=== PATIENT | female | born 2000 | race Caucasian/White ===

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

== ENCOUNTER 2018-07-31 07:13 | Emergency (ER) | payer MEDICAID ==
--- NOTE | 2018-07-31 08:44 | XR ---
EXAMINATION TYPE: XR chest 2V DATE OF EXAM: 07/31/2018 COMPARISON: 10/19/2005 HISTORY: Chest pain TECHNIQUE: Frontal and lateral views of the chest are obtained. FINDINGS: There is no focal air space opacity. No evidence for pneumothorax. No pleural effusion. The cardiac silhouette size is within normal limits. The osseous structures are grossly intact. IMPRESSION: 1. No acute cardiopulmonary process.
--- NOTE | 2018-07-31 09:06 | ED ---
General Adult HPI - General Chief complaint: Upper Respiratory Infection Stated complaint: cough/congestion Time Seen by Provider: 07/31/18 08:05 Source: patient, RN notes reviewed Mode of arrival: ambulatory Limitations: no limitations - History of Present Illness Initial comments: 18-year-old female presents to the emergency department for a chief complaint of cough congestion 3 weeks. Patient states she initially had a productive cough with green phlegm however it has since become a dry cough. Patient denies any significant shortness of breath or chest pain. Denies history of asthma or reactive airway disease. Denies fevers or chills. Patient also complaining of left-sided facial pain along the maxillary sinus, stating that this is radiating down into her teeth. Patient states her left side of her face feels a little bit swollen as well. Denies any sore throat. Denies any headaches or visual changes. Denies any pain in the left eye.Patient has no other complaints at this time including shortness of breath, chest pain, abdominal pain, nausea or vomiting, headache, or visual changes. - Related Data Home Medications Medication Instructions Recorded Confirmed FLUoxetine HCL [PROzac] 60 mg PO DAILY 04/08/14 07/31/18 Medroxyprogesterone Acetate 150 mg IM Q90D 07/31/18 07/31/18 [Depo-Provera] busPIRone HCL 15 mg PO DAILY 07/31/18 07/31/18 Previous Rx's Medication Instructions Recorded Benzonatate [Tessalon Perles] 200 mg PO Q8H PRN #15 capsule 07/31/18 Clindamycin HCl 300 mg PO Q6H 7 Days cap 07/31/18 Loratadine [Claritin] 10 mg PO DAILY #20 tab 07/31/18 Allergies Allergy/AdvReac Type Severity Reaction Status Date / Time Penicillins Allergy Rash/Hives Verified 07/31/18 07:43 Review of Systems ROS Statement: Those systems with pertinent positive or pertinent negative responses have been documented in the HPI. ROS Other: All systems not noted in ROS Statement are negative. Past Medical History Past Medical History: No Reported History History of Any Multi-Drug Resistant Organisms: None Reported Past Surgical History: No Surgical Hx Reported Past Psychological History: Depression Smoking Status: Never smoker Past Alcohol Use History: None Reported Past Drug Use History: Marijuana General Exam Limitations: no limitations General appearance: alert, in no apparent distress Head exam: Present: atraumatic, normocephalic, normal inspection Eye exam: Present: normal appearance, PERRL, EOMI. Absent: scleral icterus, conjunctival injection, periorbital swelling ENT exam: Present: normal exam, normal oropharynx (Nonerythematous, uvula midline, no tonsillar exudates noted bilaterally), mucous membranes moist, TM's normal bilaterally (Nonerythematous, nonbulging), normal external ear exam, other (Patient does have tenderness noted over the left maxillary sinus with minimal erythema. No significant edema noted.) Neck exam: Present: normal inspection, full ROM. Absent: tenderness, meningismus, lymphadenopathy Respiratory exam: Present: normal lung sounds bilaterally. Absent: respiratory distress, wheezes, rales, rhonchi, stridor Cardiovascular Exam: Present: regular rate, normal rhythm, normal heart sounds. Absent: systolic murmur, diastolic murmur, rubs, gallop, clicks Neurological exam: Present: alert, oriented X3, CN II-XII intact Psychiatric exam: Present: normal affect, normal mood Skin exam: Present: warm, dry, intact, normal color. Absent: rash Course Vital Signs 07/31/18 07:23 Temperature 97.9 F Pulse Rate 82 Respiratory 16 Rate Blood Pressure 123/67 O2 Sat by Pulse 98 Oximetry Medical Decision Making - Medical Decision Making 18-year-old female presents to the emergency room for cough and congestion 3 weeks. Patient states cough was initially productive but is now a dry cough. States she has had congestion but the past 2 days the left side of her face feels somewhat swollen and she has tenderness over the next her sinus. On exam lungs are clear to auscultation bilaterally. No wheezing. No history of asthma or reactive airway disease. Patient does have minimal erythema noted over the left maxillary sinusitis with minimal tenderness. No significant edema present of the left neck/sinusitis. Chest x-ray negative for any consolidations. Discussed case with Dr. Montano who also examined patient. At this time as patient is penicillin ALLERGIC we would like to start her on clindamycin for sinusitis as this may have turned into a bacterial infection as a has been ongoing for 3 weeks. However did discuss strict return parameters the patient including severe headache, high fevers, or pain in the eye or visual changes. Discussed following up with primary care in 1-2 days. Disposition Clinical Impression: Sinusitis, Cough Disposition: HOME SELF-CARE Condition: Good Instructions (If sedation given, give patient instructions): Sinusitis (ED), A cute Cough (ED) Additional Instructions: Please take clindamycin as directed for signs of infection. Take Claritin as well for allergic component. Try tessalon perles for cough. Follow up with primary care in 1-2 days. Return here if you have any worsening symptoms such as fevers, headaches, eye pain or visual changes. Prescriptions: Loratadine [Claritin] 10 mg PO DAILY #20 tab Clindamycin HCl 300 mg PO Q6H 7 Days cap Benzonatate [Tessalon Perles] 200 mg PO Q8H PRN #15 capsule PRN Reason: Cough Is patient prescribed a controlled substance at d/c from ED?: No Referrals: Cora Wesley MD [Primary Care Provider] - 1-2 days Time of Disposition: 09:03
[2018-07-31 09:55] VITALS: BP 135/71; PULSE 90; RESP 18; TEMP 97.4
== END 2018-07-31 09:55 | disposition home or self-care (01) ==
LOC: EC 07:13
DX: J32.0 Chronic maxillary sinusitis (principal); F32.9 Major depressive disorder, single episode, unspecified; Z79.899 Other long term (current) drug therapy; Z88.0 Allergy status to penicillin
CPT/HCPCS: 71046; 99283

== ENCOUNTER 2019-01-10 05:26 | Emergency (ER) | payer MEDICAID ==
[2019-01-10] MEDS ORDERED: SODIUM CHLORIDE 0.9% 1,000 ML IV STA (05:50)
[2019-01-10] MEDS ORDERED: MAG HYDROX/AL HYDROX/SIMETH 30 ML, HYOSCYAMINE ELIXIR 10 ML, LIDOCAINE VISCOUS 2% 10 ML PO STA ×3 (06:08)
[2019-01-10 06:13] LABS: Appearance,Urine Clear (Clear); Bilirubin,Urine Negative (Negative); Blood,Urine Negative (Negative); Color,Urine Yellow; Glucose,Urine (UA) Negative (Negative); Ketones,Urine Negative (Negative); Leukocyte Esterase,Urine Negative (Negative); Nitrite,Urine Negative (Negative); PH, Urine 6.5 (5.0-8.0); Protein,Urine Negative (Negative); Specific Gravity,Urine 1.022 (1.001-1.035)
[2019-01-10 06:14] LABS: Basophils # (A) 0.1 k/uL (0-0.2); Basophils % (A) 1 %; Eosinophils # (A) 0.1 k/uL (0-0.7); Eosinophils % (A) 1 %; HCT 39.3 % (34.0-46.0); HGB 13.1 gm/dL (11.4-16.0); Lymphocytes # (A) 1.6 k/uL (1.0-4.8); Lymphocytes % (A) 26 %; MCH 29.3 pg (25.0-35.0); MCHC 33.4 g/dL (31.0-37.0); MCV 87.7 fL (80.0-100.0); Mean Platelet Volume 6.1; Monocytes # (A) 0.3 k/uL (0-1.0); Monocytes % (A) 5 %; Neutrophils # (A) 4.1 k/uL (1.3-7.7); Neutrophils % (A) 65 %; Platelet Count 392 k/uL (150-450); RBC 4.49 m/uL (3.80-5.40); RDW 12.7 % (11.5-15.5); WBC 6.2 k/uL (4.0-11.0)
[2019-01-10 06:23] LABS: ALT 23 U/L (9-52); AST 19 U/L (14-36); African American GFR (CKD) >90 (>60 ml/min/1.73 sqM); Albumin 3.8 g/dL (3.5-5.0); Alkaline Phosphatase 113 U/L (38-126); Amylase <30 U/L (30-110); Anion Gap 10 mmol/L; Blood Urea Nitrogen 10 mg/dL (7-17); Carbon Dioxide 24 mmol/L (22-30); Chloride 107 mmol/L (98-107); Glucose 118 mg/dL (74-99); Potassium 4.1 mmol/L (3.5-5.1); Sodium 141 mmol/L (137-145); Total Bilirubin 0.3 mg/dL (0.2-1.3)
--- NOTE | 2019-01-10 06:49 | ED ---
Abdominal Pain HPI - General Chief Complaint: Abdominal Pain Stated Complaint: CHEST PAIN Time Seen by Provider: 01/10/19 05:49 Source: patient, RN notes reviewed Mode of arrival: ambulatory Limitations: no limitations - History of Present Illness Initial Comments: 18-year-old female presents emergency Department with chief complaint of epigastric pain. Patient states he woke up around 3 AM. Patient denies any current nausea vomiting diarrhea constipation or dysuria no hematuria. Denies any chance . Patient states that pain Radiates up into her chest and back. Patient states it's a burning sensation. She states his symptoms are worse when she lays down. She states that she's had ulcers in the past and states that she continuously on omeprazole states that she does not take it currently. His any fevers, chills, shortness breath. - Related Data Home Medications Medication Instructions Recorded Confirmed FLUoxetine HCL [PROzac] 60 mg PO DAILY 04/08/14 07/31/18 Medroxyprogesterone Acetate 150 mg IM Q90D 07/31/18 07/31/18 [Depo-Provera] busPIRone HCL 15 mg PO DAILY 07/31/18 07/31/18 Previous Rx's Medication Instructions Recorded Benzonatate [Tessalon Perles] 200 mg PO Q8H PRN #15 capsule 07/31/18 Clindamycin HCl 300 mg PO Q6H 7 Days cap 07/31/18 Loratadine [Claritin] 10 mg PO DAILY #20 tab 07/31/18 Omeprazole [PriLOSEC] 20 mg PO AC-BRKFST #14 cap 01/10/19 Allergies Allergy/AdvReac Type Severity Reaction Status Date / Time Penicillins Allergy Rash/Hives Verified 01/10/19 05:32 Review of Systems ROS Statement: Those systems with pertinent positive or pertinent negative responses have been documented in the HPI. ROS Other: All systems not noted in ROS Statement are negative. Past Medical History Past Medical History: No Reported History History of Any Multi-Drug Resistant Organisms: None Reported Past Surgical History: No Surgical Hx Reported Past Psychological History: Depression Smoking Status: Never smoker Past Alcohol Use History: None Reported Past Drug Use History: Marijuana General Exam Limitations: no limitations General appearance: alert, in no apparent distress Head exam: Present: atraumatic, normocephalic, normal inspection Eye exam: Present: normal appearance, PERRL, EOMI. Absent: scleral icterus, conjunctival injection, periorbital swelling ENT exam: Present: normal exam, normal oropharynx, mucous membranes moist Neck exam: Present: normal inspection. Absent: tenderness, meningismus, lymphadenopathy Respiratory exam: Present: normal lung sounds bilaterally. Absent: respiratory distress, wheezes, rales, rhonchi, stridor Cardiovascular Exam: Present: regular rate, normal rhythm, normal heart sounds. Absent: systolic murmur, diastolic murmur, rubs, gallop, clicks GI/Abdominal exam: Present: soft, tenderness (Epigastric tenderness), normal bowel sounds. Absent: distended, guarding, rebound, rigid Back exam: Absent: CVA tenderness (R), CVA tenderness (L) Neurological exam: Present: alert Skin exam: Present: warm, dry, intact, normal color. Absent: rash Course Vital Signs 01/10/19 05:30 Temperature 98.6 F Pulse Rate 88 Respiratory 20 Rate Blood Pressure 115/77 O2 Sat by Pulse 96 Oximetry - Reevaluation(s) Reevaluation #1: 01/10/19 06:53 Patient reevaluated and updated and results. Patient states that she feels improved after GI cocktail. Medical Decision Making - Medical Decision Making 18-year-old female presented for epigastric discomfort. Patient labs reveal mild elevated lipase otherwise unremarkable. Patient did have relief from GI cocktail symptoms are consistent with GERD. Patient we started on omeprazole. We discussed liquid diet today and progress as tolerated. - Lab Data Result diagrams: 01/10/19 06:00 01/10/19 06:00 Lab Results 01/10/19 01/10/19 01/10/19 Range/Units 06:00 06:00 06:00 WBC 6.2 (4.0-11.0) k/uL RBC 4.49 (3.80-5.40) m/uL Hgb 13.1 (11.4-16.0) gm/dL Hct 39.3 (34.0-46.0) % MCV 87.7 (80.0-100.0) fL MCH 29.3 (25.0-35.0) pg MCHC 33.4 (31.0-37.0) g/dL RDW 12.7 (11.5-15.5) % Plt Count 392 (150-450) k/uL Neutrophils % 65 % Lymphocytes % 26 % Monocytes % 5 % Eosinophils % 1 % Basophils % 1 % Neutrophils # 4.1 (1.3-7.7) k/uL Lymphocytes # 1.6 (1.0-4.8) k/uL Monocytes # 0.3 (0-1.0) k/uL Eosinophils # 0.1 (0-0.7) k/uL Basophils # 0.1 (0-0.2) k/uL Sodium 141 (137-145) mmol/L Potassium 4.1 (3.5-5.1) mmol/L Chloride 107 (98-107) mmol/L Carbon Dioxide 24 (22-30) mmol/L Anion Gap 10 mmol/L BUN 10 (7-17) mg/dL Creatinine 0.55 (0.52-1.04) mg/dL Est GFR (CKD-EPI)AfAm >90 (>60 ml/min/1.73 sqM) Est GFR (CKD-EPI)NonAf >90 (>60 ml/min/1.73 sqM) Glucose 118 H (74-99) mg/dL Calcium 9.0 (8.4-10.2) mg/dL Total Bilirubin 0.3 (0.2-1.3) mg/dL AST 19 (14-36) U/L ALT 23 (9-52) U/L Alkaline Phosphatase 113 (38-126) U/L Total Protein 7.0 (6.3-8.2) g/dL Albumin 3.8 (3.5-5.0) g/dL Amylase <30 L (30-110) U/L Lipase 410 H (23-300) U/L Urine Color Yellow Urine Appearance Clear (Clear) Urine pH 6.5 (5.0-8.0) Ur Specific [place] 1.022 (1.001-1.035) Urine Protein Negative (Negative) Urine Glucose (UA) Negative (Negative) Urine Ketones Negative (Negative) Urine Blood Negative (Negative) Urine Nitrite Negative (Negative) Urine Bilirubin Negative (Negative) Urine Urobilinogen 2.0 (<2.0) mg/dL Ur Leukocyte Esterase Negative (Negative) Urine HCG, Qual (Not Detectd) 01/10/19 Range/Units 06:00 WBC (4.0-11.0) k/uL RBC (3.80-5.40) m/uL Hgb (11.4-16.0) gm/dL Hct (34.0-46.0) % MCV (80.0-100.0) fL MCH (25.0-35.0) pg MCHC (31.0-37.0) g/dL RDW (11.5-15.5) % Plt Count (150-450) k/uL Neutrophils % % Lymphocytes % % Monocytes % % Eosinophils % % Basophils % % Neutrophils # (1.3-7.7) k/uL Lymphocytes # (1.0-4.8) k/uL Monocytes # (0-1.0) k/uL Eosinophils # (0-0.7) k/uL Basophils # (0-0.2) k/uL Sodium (137-145) mmol/L Potassium (3.5-5.1) mmol/L Chloride (98-107) mmol/L Carbon Dioxide (22-30) mmol/L Anion Gap mmol/L BUN (7-17) mg/dL Creatinine (0.52-1.04) mg/dL Est GFR (CKD-EPI)AfAm (>60 ml/min/1.73 sqM) Est GFR (CKD-EPI)NonAf (>60 ml/min/1.73 sqM) Glucose (74-99) mg/dL Calcium (8.4-10.2) mg/dL Total Bilirubin (0.2-1.3) mg/dL AST (14-36) U/L ALT (9-52) U/L Alkaline Phosphatase (38-126) U/L Total Protein (6.3-8.2) g/dL Albumin (3.5-5.0) g/dL Amylase (30-110) U/L Lipase (23-300) U/L Urine Color Urine Appearance (Clear) Urine pH (5.0-8.0) Ur Specific [place] (1.001-1.035) Urine Protein (Negative) Urine Glucose (UA) (Negative) Urine Ketones (Negative) Urine Blood (Negative) Urine Nitrite (Negative) Urine Bilirubin (Negative) Urine Urobilinogen (<2.0) mg/dL Ur Leukocyte Esterase (Negative) Urine HCG, Qual Not Detected (Not Detectd) Disposition Clinical Impression: Epigastric abdominal pain, Gastritis, GERD (gastroesophageal reflux disease) Disposition: HOME SELF-CARE Condition: Stable Instructions (If sedation given, give patient instructions): Gastroesophageal Reflux Disease (ED), Diet for Stomach Ulcers and Gastritis (ED) Additional Instructions: Please return to the Emergency Department if symptoms worsen or any other co ncerns. Prescriptions: Omeprazole [PriLOSEC] 20 mg PO AC-BRKFST #14 cap Is patient prescribed a controlled substance at d/c from ED?: No Referrals: None,Stated [Primary Care Provider] - 1-2 days Desmond Mendoza MD [STAFF PHYSICIAN] - 1-2 days Time of Disposition: 06:55
[2019-01-10] MEDS ORDERED: PANTOPRAZOLE 40 MG/10 ML VIAL IVP STA (06:55)
[2019-01-10] MEDS ORDERED: PANTOPRAZOLE 40 MG TABLET PO STA (07:06)
[2019-01-10 07:11] VITALS: BP 114/72; PULSE 80; RESP 18; TEMP 98
== END 2019-01-10 07:15 | disposition home or self-care (01) ==
LOC: EC 05:26
DX: K29.70 Gastritis, unspecified, without bleeding (principal); K21.9 Gastro-esophageal reflux disease without esophagitis; R74.8 Abnormal levels of other serum enzymes; F32.9 Major depressive disorder, single episode, unspecified; Z79.899 Other long term (current) drug therapy; Z88.0 Allergy status to penicillin
CPT/HCPCS: 36415; 80053; 81003; 81025; 82150; 83690; 85025; 96360; 99284

== ENCOUNTER 2019-09-26 09:19 | Emergency (ER) | payer MEDICAID ==
[2019-09-26 09:24] VITALS: TEMP 98.1
[2019-09-26] MEDS ORDERED: KETOROLAC 30 MG/ML 1 ML VIAL IVP STA (10:04)
[2019-09-26] MEDS ORDERED: ONDANSETRON 4 MG/2 ML VIAL IVP STA (10:28)
[2019-09-26 10:34] LABS: Basophils % (A) 0 %; Eosinophils # (A) 0.1 k/uL (0-0.7); Eosinophils % (A) 1 %; HCT 41.8 % (34.0-46.0); Lymphocytes # (A) 2.5 k/uL (1.0-4.8); Lymphocytes % (A) 32 %; MCH 29.8 pg (25.0-35.0); MCHC 33.6 g/dL (31.0-37.0); MCV 88.8 fL (80.0-100.0); Mean Platelet Volume 6.6; Monocytes # (A) 0.5 k/uL (0-1.0); Monocytes % (A) 6 %; Neutrophils # (A) 4.7 k/uL (1.3-7.7); Neutrophils % (A) 59 %; Platelet Count 376 k/uL (150-450); RDW 12.6 % (11.5-15.5); WBC 7.9 k/uL (3.8-10.6)
[2019-09-26 10:36] LABS: Appearance,Urine Cloudy (Clear); Bilirubin,Urine Negative (Negative); Blood,Urine Large (Negative); Color,Urine Yellow; Glucose,Urine (UA) Negative (Negative); Ketones,Urine Negative (Negative); Leukocyte Esterase,Urine Negative (Negative); Mucus,Urine Moderate /hpf; Nitrite,Urine Negative (Negative); Protein,Urine Trace (Negative); RBC,Urine 167 /hpf (0-5); Specific Gravity,Urine 1.025 (1.001-1.035); Squamous Epithelial Cell,Urine 11 /hpf (0-4); Urobilinogen,Urine <2.0 mg/dL (<2.0); WBC,Urine 2 /hpf (0-5)
[2019-09-26 10:42] LABS: ALT 18 U/L (4-34); AST 21 U/L (14-36); African American GFR (CKD) >90 (>60 ml/min/1.73 sqM); Albumin 4.2 g/dL (3.5-5.0); Alkaline Phosphatase 121 U/L (38-126); Amylase 39 U/L (30-110); Anion Gap 10 mmol/L; Blood Urea Nitrogen 10 mg/dL (7-17); Calcium 9.4 mg/dL (8.4-10.2); Carbon Dioxide 21 mmol/L (22-30); Chloride 107 mmol/L (98-107); Glucose 110 mg/dL (74-99); Non-African American GFR(CKD) >90 (>60 ml/min/1.73 sqM); Sodium 138 mmol/L (137-145); Total Bilirubin 0.3 mg/dL (0.2-1.3); Total Protein 7.1 g/dL (6.3-8.2)
--- NOTE | 2019-09-26 11:20 | ED ---
Abdominal Pain HPI - General Chief Complaint: Abdominal Pain Stated Complaint: low back/abd pain Time Seen by Provider: 09/26/19 09:26 Source: patient Mode of arrival: ambulatory Limitations: no limitations - History of Present Illness Initial Comments: 19-year-old feel with history of pancreatitis presents emergency department today for chief complaint of right side pain radiating towards the anterior abdomen. Patient states this has been ongoing since 8AM it woke her out of a sleep. Endorses nausea or vomiting. Patient denies a known history of kidney stones denies having dysuria urgency frequency or noting hematuria. Patient denies . Denies a vaginal bleeding or discharge. Denies fevers, chillss. Patient has no additional complaints denies any epigastric pain. Patient appears well on arrival. - Related Data Home Medications Medication Instructions Recorded Confirmed FLUoxetine HCL [PROzac] 60 mg PO DAILY 04/08/14 07/31/18 Medroxyprogesterone Acetate 150 mg IM Q90D 07/31/18 07/31/18 [Depo-Provera] busPIRone HCL 15 mg PO DAILY 07/31/18 07/31/18 Previous Rx's Medication Instructions Recorded Benzonatate [Tessalon Perles] 200 mg PO Q8H PRN #15 capsule 07/31/18 Clindamycin HCl 300 mg PO Q6H 7 Days cap 07/31/18 Loratadine [Claritin] 10 mg PO DAILY #20 tab 07/31/18 Omeprazole [PriLOSEC] 20 mg PO AC-BRKFST #14 cap 01/10/19 Ketorolac [Toradol] 10 mg PO Q8HR PRN 3 Days #9 tab 09/26/19 Ondansetron Odt [Zofran Odt] 4 mg PO Q8HR PRN 3 Days #9 tab 09/26/19 Allergies Allergy/AdvReac Type Severity Reaction Status Date / Time Penicillins Allergy Rash/Hives Verified 09/26/19 09:24 Review of Systems ROS Statement: Those systems with pertinent positive or pertinent negative responses have been documented in the HPI. ROS Other: All systems not noted in ROS Statement are negative. Past Medical History Past Medical History: No Reported History History of Any Multi-Drug Resistant Organisms: None Reported Past Surgical History: No Surgical Hx Reported Past Psychological History: Depression Smoking Status: Never smoker Past Alcohol Use History: None Reported Past Drug Use History: Marijuana General Exam - General Exam Comments Initial Comments: General: The patient is awake and alert, in no distress, and does not appear acutely ill. Eye: Pupils are equal, round and reactive to light, extra-ocular movements are intact. No nystagmus. There is normal conjunctiva bilaterally. No signs of icterus. Ears, nose, mouth and throat: There are moist mucous membranes and no oral lesions. Neck: The neck is supple, there is no tenderness or JVD. Cardiovascular: There is a regular rate and rhythm. No murmur, rub or gallop is appreciated. Respiratory: Lungs are clear to auscultation, respirations are non-labored, breath sounds are equal. No wheezes, stridor, rales, or rhonchi. Gastrointestinal: Soft, non-distended, some mild tenderness with DEEP palpation of RLQ, no epigastric pain without masses or organomegaly noted. There is no rebound or guarding present. No CVA tenderness. Bowel sounds are unremarkable. Musculoskeletal: Normal ROM, no tenderness. Strength 5/5. Sensation intact. Radial pulses equal bilaterally 2+. Neurological: A&O x 3. CN II-XII intact, There are no obvious motor or sensory deficits. Coordination appears grossly intact. Speech is normal. Skin: Skin is warm and dry and no rashes or lesions are noted. Psychiatric: Cooperative, appropriate mood & affect, normal judgment. Limitations: no limitations Course Vital Signs 09/26/19 09/26/19 09/26/19 09:21 11:23 12:15 Temperature 98.1 F Pulse Rate 80 77 70 Respiratory 18 18 14 Rate Blood Pressure 110/84 107/70 110/68 O2 Sat by Pulse 99 98 98 Oximetry Medical Decision Making - Medical Decision Making CT reveals 3mm stone near area of complaints. Mildly elevated lipase, no symptoms patient endorses history of chronic pancreatitis=recommended outpatient f/u. Patinet symptoms controlled she does not appears toxic. No signs of septic sotne. Patient will be discharged with toradol, urology f/u. Patient agreeable to care plan and discharge. Dr. Woo agreeable to care plan attending provider. - Lab Data Result diagrams: 09/26/19 10:24 09/26/19 10:24 Lab Results 07/26/20 07/26/20 07/26/20 Range/Units 10:24 10:24 10:24 WBC 7.9 (3.8-10.6) k/uL RBC 4.70 (3.80-5.40) m/uL Hgb 14.0 (11.4-16.0) gm/dL Hct 41.8 (34.0-46.0) % MCV 88.8 (80.0-100.0) fL MCH 29.8 (25.0-35.0) pg MCHC 33.6 (31.0-37.0) g/dL RDW 12.6 (11.5-15.5) % Plt Count 376 (150-450) k/uL Neutrophils % 59 % Lymphocytes % 32 % Monocytes % 6 % Eosinophils % 1 % Basophils % 0 % Neutrophils # 4.7 (1.3-7.7) k/uL Lymphocytes # 2.5 (1.0-4.8) k/uL Monocytes # 0.5 (0-1.0) k/uL Eosinophils # 0.1 (0-0.7) k/uL Basophils # 0.0 (0-0.2) k/uL Sodium (137-145) mmol/L Potassium (3.5-5.1) mmol/L Chloride (98-107) mmol/L Carbon Dioxide (22-30) mmol/L Anion Gap mmol/L BUN (7-17) mg/dL Creatinine (0.52-1.04) mg/dL Est GFR (CKD-EPI)AfAm (>60 ml/min/1.73 sqM) Est GFR (CKD-EPI)NonAf (>60 ml/min/1.73 sqM) Glucose (74-99) mg/dL Calcium (8.4-10.2) mg/dL Total Bilirubin (0.2-1.3) mg/dL AST (14-36) U/L ALT (4-34) U/L Alkaline Phosphatase (38-126) U/L Total Protein (6.3-8.2) g/dL Albumin (3.5-5.0) g/dL Amylase (30-110) U/L Lipase (23-300) U/L Urine Color Yellow Urine Appearance Cloudy H (Clear) Urine pH 5.0 (5.0-8.0) Ur Specific [place] 1.025 (1.001-1.035) Urine Protein Trace H (Negative) Urine Glucose (UA) Negative (Negative) Urine Ketones Negative (Negative) Urine Blood Large H (Negative) Urine Nitrite Negative (Negative) Urine Bilirubin Negative (Negative) Urine Urobilinogen <2.0 (<2.0) mg/dL Ur Leukocyte Esterase Negative (Negative) Urine RBC 167 H (0-5) /hpf Urine WBC 2 (0-5) /hpf Ur Squamous Epith Cells 11 H (0-4) /hpf Urine Mucus Moderate H (None) /hpf Urine HCG, Qual Not Detected (Not Detectd) 09/26/19 Range/Units 10:24 WBC (3.8-10.6) k/uL RBC (3.80-5.40) m/uL Hgb (11.4-16.0) gm/dL Hct (34.0-46.0) % MCV (80.0-100.0) fL MCH (25.0-35.0) pg MCHC (31.0-37.0) g/dL RDW (11.5-15.5) % Plt Count (150-450) k/uL Neutrophils % % Lymphocytes % % Monocytes % % Eosinophils % % Basophils % % Neutrophils # (1.3-7.7) k/uL Lymphocytes # (1.0-4.8) k/uL Monocytes # (0-1.0) k/uL Eosinophils # (0-0.7) k/uL Basophils # (0-0.2) k/uL Sodium 138 (137-145) mmol/L Potassium 4.0 (3.5-5.1) mmol/L Chloride 107 (98-107) mmol/L Carbon Dioxide 21 L (22-30) mmol/L Anion Gap 10 mmol/L BUN 10 (7-17) mg/dL Creatinine 0.55 (0.52-1.04) mg/dL Est GFR (CKD-EPI)AfAm >90 (>60 ml/min/1.73 sqM) Est GFR (CKD-EPI)NonAf >90 (>60 ml/min/1.73 sqM) Glucose 110 H (74-99) mg/dL Calcium 9.4 (8.4-10.2) mg/dL Total Bilirubin 0.3 (0.2-1.3) mg/dL AST 21 (14-36) U/L ALT 18 (4-34) U/L Alkaline Phosphatase 121 (38-126) U/L Total Protein 7.1 (6.3-8.2) g/dL Albumin 4.2 (3.5-5.0) g/dL Amylase 39 (30-110) U/L Lipase 359 H (23-300) U/L Urine Color Urine Appearance (Clear) Urine pH (5.0-8.0) Ur Specific [place] (1.001-1.035) Urine Protein (Negative) Urine Glucose (UA) (Negative) Urine Ketones (Negative) Urine Blood (Negative) Urine Nitrite (Negative) Urine Bilirubin (Negative) Urine Urobilinogen (<2.0) mg/dL Ur Leukocyte Esterase (Negative) Urine RBC (0-5) /hpf Urine WBC (0-5) /hpf Ur Squamous Epith Cells (0-4) /hpf Urine Mucus (None) /hpf Urine HCG, Qual (Not Detectd) Disposition Clinical Impression: Urolithiasis, Right flank pain Disposition: HOME SELF-CARE Condition: Good Instructions (If sedation given, give patient instructions): Kidney Stones (ED) Additional Instructions: Please use medication as discussed. Please follow-up with urology in next week. Please return to emergency room if the symptoms increase or worsen or for any other concerns. Prescriptions: Ketorolac [Toradol] 10 mg PO Q8HR PRN 3 Days #9 tab PRN Reason: Severe Pain Ondansetron Odt [Zofran Odt] 4 mg PO Q8HR PRN 3 Days #9 tab PRN Reason: Nausea Is patient prescribed a controlled substance at d/c from ED?: No Referrals: Dario Alcaraz [Primary Care Provider] - 1-2 days Sergio Booker MD [STAFF PHYSICIAN] - 1-2 days Time of Disposition: 12:12
--- NOTE | 2019-09-26 11:52 | CT ---
EXAMINATION TYPE: CT abdomen pelvis wo con DATE OF EXAM: 09/26/2019 COMPARISON: Previous study dated 03/26/2010. HISTORY: Rt flank pain CT DLP: 944.9 mGycm Automated exposure control for dose reduction was used. FINDINGS: Visualized portions of the lungs are clear. There is no pleural or pericardial fluid presen t. The heart is not enlarged. Within the abdomen, the liver, spleen and gallbladder are normal. Both adrenal glands are normal. Limited views of the pancreas are unremarkable. There is a 1 to 2 mm calculus in the anterior middle pole calyx of the left kidney. There is no hydro nephrosis on the left. There is fullness in the right renal pelvis. There is a small 3 mm calculus in the distal left ureter approximately 9 mm from the UVJ. There is no significant retroperitoneal, iliac or inguinal adenopathy. The bladder is unremarkable. The uterus and ovaries are normal. There is no significant diverticular change and there is no radiographic evidence of diverticulitis. The appendix is normal. Small bowel loops are of normal caliber. There is no free fluid and no free air. IMPRESSION: 1. 3 MM DISTAL RIGHT URETERIC CALCULUS CAUSING MILD FULLNESS OF THE RIGHT RENAL PELVIS AND URETER. 2. NONOBSTRUCTING LEFT-SIDED NEPHROLITHIASIS.
[2019-09-26 12:24] VITALS: BP 110/68; PULSE 70; RESP 14
== END 2019-09-26 12:22 | disposition home or self-care (01) ==
LOC: EC 09:19
DX: N20.9 Urinary calculus, unspecified (principal); R74.8 Abnormal levels of other serum enzymes; F32.9 Major depressive disorder, single episode, unspecified; Z79.899 Other long term (current) drug therapy; Z88.0 Allergy status to penicillin
CPT/HCPCS: 36415; 80053; 82150; 83690; 85025; 81001; 81025; 74176; 99284; 96374; 96375; J2405; J1885

== ENCOUNTER → 2019-11-24 | Outpatient (CLI) | payer MEDICAID ==
--- NOTE | 2019-11-24 09:23 | USB ---
Reason for exam: clinical finding. History: Family history of breast cancer in maternal grandmother at age 50. Indicated problem(s): palpable abnormality in the left breast. Physical Findings: Nurse Summary: left breast palpable 6 o'clock at nipple 1 x 1.5cm movable, nontender (nurse ts). US Breast LT Left complete breast ultrasound includes all four quadrants, the retroareolar region and axilla. Finding demonstrates a 0.7 x 1.1 x 0.5cm oval, mixed lesion at 5 o'clock posterior nipple, likely a confluence of ducts, 6 month follow up recommended. These results were verbally communicated with the patient and result sheet given to the patient on 11/24/19. ASSESSMENT: Probably benign, BI-RAD 3 RECOMMENDATION: Ultrasound of the left breast in 6 months. Manage patient on a clinical basis.
== END | disposition home or self-care (01) ==
LOC: RADUSWWP 07:41
PROVIDERS: ATTEND Family Medicine
DX: N63.20 Unspecified lump in the left breast, unspecified quadrant (principal); N89.8 Other specified noninflammatory disorders of vagina; R87.610 Atypical squamous cells of undetermined significance on cytologic smear of cervix (ASC-US)

== ENCOUNTER → 2020-06-12 | Outpatient (CLI) | payer MEDICAID ==
--- NOTE | 2020-06-12 09:37 | USB ---
Reason for exam: follow-up at short interval from prior study. History: Family history of breast cancer in maternal grandmother at age 50. Physical Findings: Nurse Summary: Patient complains of bilateral breast pain with breast exam (nurse xenia). US Breast Limited LT Technologist: Ashlee Reyna Left limited breast ultrasound including focal area of concern, retroareolar and axilla demonstrates no cystic or solid lesion seen. Scanned 4-6 o'clock. These results were verbally communicated with the patient and result sheet given to the patient on 06/12/20. ASSESSMENT: Negative, BI-RAD 1 RECOMMENDATION: Clinical management of the left breast. Manage patient on a clinical basis.
== END | disposition home or self-care (01) ==
LOC: RADUSWWP 08:49
PROVIDERS: ATTEND Family Medicine
DX: R92.8 Other abnormal and inconclusive findings on diagnostic imaging of breast (principal)

== ENCOUNTER 2020-09-15 21:10 | Emergency (ER) | payer MEDICAID ==
[2020-09-15 21:22] VITALS: TEMP 98.6
[2020-09-15] MEDS ORDERED: METOCLOPRAMIDE 5 MG/ML 2 ML VIAL IVP STA (22:09)
[2020-09-15] MEDS ORDERED: KETOROLAC 15 MG/ML 1 ML VIAL IVP STA (22:09)
[2020-09-15] MEDS ORDERED: SODIUM CHLORIDE 0.9% 500 ML 500 ML IV STA (22:09)
--- NOTE | 2020-09-15 22:14 | ED ---
Chest Pain HPI - General Chief Complaint: Chest Pain Stated Complaint: chest pain, dizziness Time Seen by Provider: 09/15/20 21:24 Source: patient Mode of arrival: wheelchair Limitations: no limitations - Related Data Home Medications Medication Instructions Recorded Confirmed FLUoxetine HCL [PROzac] 60 mg PO DAILY 04/08/14 09/15/20 Cyanocobalamin (Vitamin B-12) 2,000 mcg PO DAILY 09/15/20 09/15/20 [Vitamin B-12] busPIRone HCl [Buspar] 10 mg PO BID 09/15/20 09/15/20 hydrOXYzine HCL 10 mg PO HS PRN 09/15/20 09/15/20 Allergies Allergy/AdvReac Type Severity Reaction Status Date / Time Penicillins Allergy Rash/Hives Verified 09/15/20 22:02 Review of Systems ROS Statement: Those systems with pertinent positive or pertinent negative responses have been documented in the HPI. ROS Other: All systems not noted in ROS Statement are negative. EKG Findings - EKG Results: EKG: interpreted by YULIA, sinus rhythm, normal axis, normal QRS, normal ST/T, no acute changes EKG shows: tachycardia (Rate 105 bpm) Past Medical History Past Medical History: No Reported History History of Any Multi-Drug Resistant Organisms: None Reported Past Surgical History: No Surgical Hx Reported Past Psychological History: Anxiety, Depression Smoking Status: Never smoker Past Alcohol Use History: Occasional Past Drug Use History: None Reported, Marijuana General Exam Limitations: no limitations Course Vital Signs 09/15/20 09/15/20 21:15 23:30 Temperature 98.6 F Pulse Rate 112 H 84 Respiratory 20 18 Rate Blood Pressure 139/96 118/80 O2 Sat by Pulse 97 100 Oximetry Disposition Clinical Impression: Chest pain, Headache Disposition: HOME SELF-CARE Condition: Good Instructions (If sedation given, give patient instructions): Chest Pain (ED), Acute Headache (ED) Is patient prescribed a controlled substance at d/c from ED?: No Referrals: Dario Alcaraz [Primary Care Provider] - 1-2 days
[2020-09-15 22:27] LABS: Basophils % (A) 1 %; Eosinophils % (A) 0 %; HCT 43.5 % (34.0-46.0); HGB 14.6 gm/dL (11.4-16.0); Lymphocytes # (A) 1.4 k/uL (1.0-4.8); Lymphocytes % (A) 18 %; MCH 29.8 pg (25.0-35.0); MCHC 33.6 g/dL (31.0-37.0); MCV 88.6 fL (80.0-100.0); Mean Platelet Volume 6.6; Monocytes # (A) 0.3 k/uL (0-1.0); Monocytes % (A) 4 %; Neutrophils # (A) 6.1 k/uL (1.3-7.7); Neutrophils % (A) 76 %; Platelet Count 413 k/uL (150-450); RBC 4.91 m/uL (3.80-5.40); RDW 13.2 % (11.5-15.5); WBC 8.1 k/uL (3.8-10.6)
[2020-09-15 22:39] LABS: ALT 22 U/L (4-34); AST 24 U/L (14-36); African American GFR (CKD) >90 (>60 ml/min/1.73 sqM); Albumin 4.5 g/dL (3.5-5.0); Alkaline Phosphatase 129 U/L (38-126); Anion Gap 10 mmol/L; Blood Urea Nitrogen 8 mg/dL (7-17); Carbon Dioxide 28 mmol/L (22-30); Chloride 105 mmol/L (98-107); Glucose 100 mg/dL (74-99); Non-African American GFR(CKD) >90 (>60 ml/min/1.73 sqM); Potassium 3.9 mmol/L (3.5-5.1); Sodium 143 mmol/L (137-145); Total Bilirubin 0.2 mg/dL (0.2-1.3); Total Protein 7.5 g/dL (6.3-8.2)
--- NOTE | 2020-09-15 22:46 | XR ---
EXAMINATION TYPE: XR chest 2V DATE OF EXAM: 09/15/2020 COMPARISON: 07/31/2018 HISTORY: Cough and congestion TECHNIQUE: FINDINGS: Heart and mediastinum are normal. Lungs are clear. Diaphragm is normal. Bony thorax appears normal. There are chest leads. IMPRESSION: Normal chest. No change.
[2020-09-15 23:31] VITALS: BP 118/80; PULSE 84; RESP 18
== END 2020-09-16 00:26 | disposition home or self-care (01) ==
LOC: EC 21:10
DX: R07.9 Chest pain, unspecified (principal); R51.9 Headache, unspecified; R42 Dizziness and giddiness; F32.9 Major depressive disorder, single episode, unspecified; F41.9 Anxiety disorder, unspecified; Z88.0 Allergy status to penicillin
CPT/HCPCS: 36415; 93005; 85379; 80053; 84484; 85025; 71046; 99285; 96374; 96375; 96361 ×2; J2765; J1885

== ENCOUNTER 2020-10-05 02:17 | Emergency (ER) | payer MEDICAID ==
[2020-10-05 02:38] VITALS: TEMP 97.8
[2020-10-05 03:29] LABS: Basophils % (A) 0 %; Eosinophils # (A) 0.1 k/uL (0-0.7); Eosinophils % (A) 1 %; HCT 42.4 % (34.0-46.0); HGB 14.3 gm/dL (11.4-16.0); Lymphocytes # (A) 2.9 k/uL (1.0-4.8); Lymphocytes % (A) 36 %; MCH 30.6 pg (25.0-35.0); MCHC 33.8 g/dL (31.0-37.0); MCV 90.6 fL (80.0-100.0); Mean Platelet Volume 6.7; Monocytes # (A) 0.6 k/uL (0-1.0); Monocytes % (A) 8 %; Neutrophils # (A) 4.3 k/uL (1.3-7.7); Neutrophils % (A) 53 %; Platelet Count 422 k/uL (150-450); RBC 4.68 m/uL (3.80-5.40); RDW 13.4 % (11.5-15.5); WBC 8.1 k/uL (3.8-10.6)
[2020-10-05 03:30] LABS: Appearance,Urine Clear (Clear); Bilirubin,Urine Negative (Negative); Blood,Urine Negative (Negative); Color,Urine Light Yellow; Glucose,Urine (UA) Negative (Negative); Ketones,Urine Negative (Negative); Leukocyte Esterase,Urine Negative (Negative); Nitrite,Urine Negative (Negative); Protein,Urine Negative (Negative); Specific Gravity,Urine 1.008 (1.001-1.035); Urobilinogen,Urine <2.0 mg/dL (<2.0)
[2020-10-05] MEDS ORDERED: KETOROLAC 15 MG/ML 1 ML VIAL IVP STA (03:40)
[2020-10-05 03:44] LABS: ALT 21 U/L (4-34); AST 23 U/L (14-36); African American GFR (CKD) >90 (>60 ml/min/1.73 sqM); Alkaline Phosphatase 118 U/L (38-126); Amylase 49 U/L (30-110); Anion Gap 7 mmol/L; Blood Urea Nitrogen 8 mg/dL (7-17); Calcium 9.5 mg/dL (8.4-10.2); Carbon Dioxide 25 mmol/L (22-30); Chloride 105 mmol/L (98-107); Glucose 84 mg/dL (74-99); Lipase 461 U/L (23-300); Non-African American GFR(CKD) >90 (>60 ml/min/1.73 sqM); Sodium 137 mmol/L (137-145); Total Bilirubin 0.2 mg/dL (0.2-1.3); Total Protein 6.8 g/dL (6.3-8.2)
--- NOTE | 2020-10-05 04:18 | ED ---
Abdominal Pain HPI - General Chief Complaint: Abdominal Pain Stated Complaint: Abdominal and back pain Time Seen by Provider: 10/05/20 02:54 Source: patient Mode of arrival: ambulatory Limitations: no limitations - History of Present Illness Initial Comments: This patient is a 20-year-old woman who presents to the hospital with almost 1- 1/2 weeks of lower abdominal pain. Patient states that is been getting a little more progressively severe over the past few days. Also over the past 2 days she has noticed some light yellow discharge from her umbilicus and crusting in the morning. Patient has been taking ibuprofen which gives a little bit of relief. She has not noted worsening symptoms. MD Complaint: abdominal pain Onset/Timin -: week(s) Location: LLQ, RLQ Radiation: L flank Migration to: no migration Severity: moderate Quality: cramping, aching Consistency: constant Improves With: nothing Worsens With: nothing Associated Symptoms: nausea Treatments Prior to Arrival: NSAIDs - Related Data LMP (females 10-50): last week Home Medications Medication Instructions Recorded Confirmed FLUoxetine HCL [PROzac] 60 mg PO DAILY 04/08/14 09/15/20 Cyanocobalamin (Vitamin B-12) 2,000 mcg PO DAILY 09/15/20 09/15/20 [Vitamin B-12] busPIRone HCl [Buspar] 10 mg PO BID 09/15/20 09/15/20 hydrOXYzine HCL 10 mg PO HS PRN 09/15/20 09/15/20 Allergies Allergy/AdvReac Type Severity Reaction Status Date / Time Penicillins Allergy Rash/Hives Verified 10/05/20 02:38 Review of Systems ROS Statement: Those systems with pertinent positive or pertinent negative responses have been documented in the HPI. ROS Other: All systems not noted in ROS Statement are negative. Constitutional: Denies: fever, chills Respiratory: Denies: cough, dyspnea Cardiovascular: Denies: chest pain, palpitations, edema Gastrointestinal: Reports: abdominal pain, nausea. Denies: vomiting, diarrhea, constipation Genitourinary: Denies: dysuria, frequency, hematuria, abnormal menses Musculoskeletal: Denies: back pain Skin: Denies: rash Neurological: Denies: headache, weakness, numbness Past Medical History Past Medical History: No Reported History History of Any Multi-Drug Resistant Organisms: None Reported Past Surgical History: No Surgical Hx Reported Past Psychological History: Anxiety, Depression Smoking Status: Never smoker Past Alcohol Use History: Occasional Past Drug Use History: Marijuana General Exam Limitations: no limitations General appearance: alert, in no apparent distress Head exam: Present: atraumatic, normocephalic Eye exam: Present: normal appearance. Absent: scleral icterus, conjunctival injection Neck exam: Present: normal inspection Respiratory exam: Present: normal lung sounds bilaterally. Absent: respiratory distress, wheezes, rales, rhonchi, stridor Cardiovascular Exam: Present: regular rate, normal rhythm, normal heart sounds. Absent: systolic murmur, diastolic murmur, rubs, gallop Course Vital Signs 10/05/20 10/05/20 02:35 04:38 Temperature 97.8 F Pulse Rate 95 88 Respiratory 18 16 Rate Blood Pressure 134/79 106/70 O2 Sat by Pulse 97 98 Oximetry Medical Decision Making - Lab Data Result diagrams: 10/05/20 03:05 10/05/20 03:05 Lab Results 10/05/20 10/05/20 10/05/20 Range/Units 03:05 03:05 03:05 WBC 8.1 (3.8-10.6) k/uL RBC 4.68 (3.80-5.40) m/uL Hgb 14.3 (11.4-16.0) gm/dL Hct 42.4 (34.0-46.0) % MCV 90.6 (80.0-100.0) fL MCH 30.6 (25.0-35.0) pg MCHC 33.8 (31.0-37.0) g/dL RDW 13.4 (11.5-15.5) % Plt Count 422 (150-450) k/uL MPV 6.7 Neutrophils % 53 % Lymphocytes % 36 % Monocytes % 8 % Eosinophils % 1 % Basophils % 0 % Neutrophils # 4.3 (1.3-7.7) k/uL Lymphocytes # 2.9 (1.0-4.8) k/uL Monocytes # 0.6 (0-1.0) k/uL Eosinophils # 0.1 (0-0.7) k/uL Basophils # 0.0 (0-0.2) k/uL Sodium (137-145) mmol/L Potassium (3.5-5.1) mmol/L Chloride (98-107) mmol/L Carbon Dioxide (22-30) mmol/L Anion Gap mmol/L BUN (7-17) mg/dL Creatinine (0.52-1.04) mg/dL Est GFR (CKD-EPI)AfAm (>60 ml/min/1.73 sqM) Est GFR (CKD-EPI)NonAf (>60 ml/min/1.73 sqM) Glucose (74-99) mg/dL Calcium (8.4-10.2) mg/dL Total Bilirubin (0.2-1.3) mg/dL AST (14-36) U/L ALT (4-34) U/L Alkaline Phosphatase (38-126) U/L Total Protein (6.3-8.2) g/dL Albumin (3.5-5.0) g/dL Amylase (30-110) U/L Lipase (23-300) U/L Urine Color Light Yellow Urine Appearance Clear (Clear) Urine pH 6.0 (5.0-8.0) Ur Specific [place] 1.008 (1.001-1.035) Urine Protein Negative (Negative) Urine Glucose (UA) Negative (Negative) Urine Ketones Negative (Negative) Urine Blood Negative (Negative) Urine Nitrite Negative (Negative) Urine Bilirubin Negative (Negative) Urine Urobilinogen <2.0 (<2.0) mg/dL Ur Leukocyte Esterase Negative (Negative) Urine HCG, Qual Not Detected (Not Detectd) 10/05/20 Range/Units 03:05 WBC (3.8-10.6) k/uL RBC (3.80-5.40) m/uL Hgb (11.4-16.0) gm/dL Hct (34.0-46.0) % MCV (80.0-100.0) fL MCH (25.0-35.0) pg MCHC (31.0-37.0) g/dL RDW (11.5-15.5) % Plt Count (150-450) k/uL MPV Neutrophils % % Lymphocytes % % Monocytes % % Eosinophils % % Basophils % % Neutrophils # (1.3-7.7) k/uL Lymphocytes # (1.0-4.8) k/uL Monocytes # (0-1.0) k/uL Eosinophils # (0-0.7) k/uL Basophils # (0-0.2) k/uL Sodium 137 (137-145) mmol/L Potassium 4.0 (3.5-5.1) mmol/L Chloride 105 (98-107) mmol/L Carbon Dioxide 25 (22-30) mmol/L Anion Gap 7 mmol/L BUN 8 (7-17) mg/dL Creatinine 0.56 (0.52-1.04) mg/dL Est GFR (CKD-EPI)AfAm >90 (>60 ml/min/1.73 sqM) Est GFR (CKD-EPI)NonAf >90 (>60 ml/min/1.73 sqM) Glucose 84 (74-99) mg/dL Calcium 9.5 (8.4-10.2) mg/dL Total Bilirubin 0.2 (0.2-1.3) mg/dL AST 23 (14-36) U/L ALT 21 (4-34) U/L Alkaline Phosphatase 118 (38-126) U/L Total Protein 6.8 (6.3-8.2) g/dL Albumin 4.0 (3.5-5.0) g/dL Amylase 49 (30-110) U/L Lipase 461 H (23-300) U/L Urine Color Urine Appearance (Clear) Urine pH (5.0-8.0) Ur Specific [place] (1.001-1.035) Urine Protein (Negative) Urine Glucose (UA) (Negative) Urine Ketones (Negative) Urine Blood (Negative) Urine Nitrite (Negative) Urine Bilirubin (Negative) Urine Urobilinogen (<2.0) mg/dL Ur Leukocyte Esterase (Negative) Urine HCG, Qual (Not Detectd) Disposition Clinical Impression: Abdominal pain Disposition: HOME SELF-CARE Condition: Good Instructions (If sedation given, give patient instructions): Abdominal Pain (ED) Is patient prescribed a controlled substance at d/c from ED?: No Referrals: Dario Alcaraz [Primary Care Provider] - 1-2 days
--- NOTE | 2020-10-05 04:52 | CT ---
EXAMINATION TYPE: CT abdomen pelvis w con DATE OF EXAM: 10/05/2020 COMPARISON: 09/26/2019 HISTORY: MID TO LOWER ABD PAIN CT DLP: 1333.50 mGycm Automated exposure control for dose reduction was used. CONTRAST: Performed with IV Contrast, patient injected with 100 mL of Isovue 300. Lung bases are clear. There is no pleural effusion. Heart size is normal. There is no pericardial eff usion. Liver spleen pancreas gallbladder appear intact. The bile ducts are not dilated. Stomach is intact. There is no adrenal mass. Kidneys show satisfactory contrast opacification. There is no hydronephrosi s. Ureters are not dilated. There is no retroperitoneal adenopathy. Urinary bladder distends smoothly . There is no inguinal hernia. There is no free fluid in the pelvis. Uterus is anteverted. The cul-de -sac is clear fluid. There is no mesenteric edema. There is no ascites or free air. There is no evidence of a bowel obstru ction. There is no sign of a pelvic mass. There is no evidence of thickened appendix. Appendix appear s to be posterior and appears normal. Delayed images show normal renal excretion. The lumbar vertebra have normal alignment. Posterior elements are intact. There is no compression fra cture. Bony pelvis is intact. Hip joints appear normal. IMPRESSION: No evidence of renal stone or obstruction. Appendix partly visualized and appears normal. No sign of acute abdomen and pelvis..
[2020-10-05 05:12] VITALS: BP 106/70; PULSE 88; RESP 16
== END 2020-10-05 05:30 | disposition home or self-care (01) ==
LOC: EC 02:17
DX: R10.31 Right lower quadrant pain (principal); R10.32 Left lower quadrant pain; R11.0 Nausea; F32.9 Major depressive disorder, single episode, unspecified; F41.9 Anxiety disorder, unspecified; F12.90 Cannabis use, unspecified, uncomplicated
CPT/HCPCS: 36415; 74177; 80053; 81003; 81025; 82150; 83690; 85025; 96374; 99284

== ENCOUNTER → 2021-10-02 | Outpatient (CLI) | payer MEDICAID ==
--- NOTE | 2021-10-03 09:14 | US ---
EXAMINATION TYPE: US pelvic complete DATE OF EXAM: 10/02/2021 COMPARISON: 10/05/2020 CLINICAL HISTORY: 21-year-old female R10.2 PELVIC PAIN. Pelvic pain and pain during intercourse, ewa ent on control, history of D&C TECHNIQUE: Transabdominal sonographic images of the pelvis were acquired. Date of LMP: 3 years ago FINDINGS: EXAM MEASUREMENTS: Uterus: 6.0 x 2.9 x 4.1 cm Endometrial Stripe: 0.3 cm Right Ovary: 2.7 x 1.8 x 2.3 cm Left Ovary: 3.1 x 2.3 x 2.2 cm 1. Uterus: anteverted and otherwise within normal limits 2. Endometrium: appears wnl 3. Right Ovary: wnl 4. Left Ovary: wnl 5. Bilateral Adnexa: wnl 6. Posterior cul-de-sac: wnl IMPRESSION: No specific sonographic abnormality of the pelvis on transabdominal scanning.
== END | disposition home or self-care (01) ==
LOC: RADUSWWP 16:13
PROVIDERS: ATTEND Family Medicine
DX: R10.2 Pelvic and perineal pain (principal)
CPT/HCPCS: 76856

== ENCOUNTER → 2021-10-04 | Outpatient (CLI) | payer MEDICAID ==
--- NOTE | 2021-10-04 10:18 | USB ---
Patient History: Maternal grandmother had breast cancer, age 50. Findings: The whole breast of both breasts, the axilla of both breasts and the retroareolar of both breasts were scanned. Whole bilateral breast ultrasounds including scanning of the subareolar region and axilla. Particular attention to the patient's palpable sites located on the right at 1:00 and 5:00 and on the left at 3:00. Dense tissues are present throughout. No solid or cystic lesion or axillary lymphadenopathy. No imaging correlate to the patient's palpable sites. Overall Assessment: Benign, BI-RAD 2 Management: Screening Mammogram of both breasts at age 38. 1. Further clinical management for any suspicious palpable areas. If there is any enlarging area, the patient can be rescanned. 2. Continue monthly self breast exams. Electronically signed and approved by: Sandy Acevedo M.D. Radiologist
== END | disposition home or self-care (01) ==
LOC: RADUSWWP 08-29 14:13
PROVIDERS: ATTEND Family Medicine
DX: R92.8 Other abnormal and inconclusive findings on diagnostic imaging of breast (principal); Z80.3 Family history of malignant neoplasm of breast

== ENCOUNTER 2021-10-10 09:50 | Emergency (ER) | payer MEDICAID ==
[2021-10-10 09:55] VITALS: TEMP 98.6
[2021-10-10] MEDS ORDERED: FLUTICASONE 50MCG/SPRAY NASAL 16GM EA NOSTRIL STA (10:21)
[2021-10-10] MEDS ORDERED: SODIUM CHLORIDE 0.9% 1,000 ML IV STA (10:55)
--- NOTE | 2021-10-10 11:43 | ED ---
URI HPI - General Chief Complaint: Upper Respiratory Infection Stated Complaint: Covid+, heart racing Time Seen by Provider: 10/10/21 10:02 Source: patient Mode of arrival: ambulatory Limitations: no limitations - History of Present Illness Initial Comments: Patient is a 21 otherwise healthy female who presents to the emergency department with a chief complaint of elevated heartbeat with COVID-19 infection. Patient states she developed congestion, sore throat, and dry cough 2 days ago and tested positive for COVID-19 today. Patient states she hasn't watching her heart rate on her watch and states at rest and has been around 110 and when she is active in the low 130s. Denies chest pain, shortness of breath, and palpitations. Denies history of arrhythmia and other cardiac disease. Denies history of DVT and PE. Denies fever, chills, abdominal pain, nausea, vomiting, leg pain, leg swelling. - Related Data Home Medications Medication Instructions Recorded Confirmed FLUoxetine HCL [PROzac] 60 mg PO DAILY 04/08/14 09/15/20 Cyanocobalamin (Vitamin B-12) 2,000 mcg PO DAILY 09/15/20 09/15/20 [Vitamin B-12] busPIRone HCl [Buspar] 10 mg PO BID 09/15/20 09/15/20 hydrOXYzine HCL 10 mg PO HS PRN 09/15/20 09/15/20 Allergies Allergy/AdvReac Type Severity Reaction Status Date / Time Penicillins Allergy Rash/Hives Verified 10/10/21 09:55 Review of Systems ROS Statement: Those systems with pertinent positive or pertinent negative responses have been documented in the HPI. ROS Other: All systems not noted in ROS Statement are negative. Past Medical History Past Medical History: No Reported History History of Any Multi-Drug Resistant Organisms: None Reported Past Surgical History: No Surgical Hx Reported Past Psychological History: Anxiety, Depression Smoking Status: Never smoker Past Alcohol Use History: Occasional Past Drug Use History: Marijuana General Exam Limitations: no limitations General appearance: alert, in no apparent distress Head exam: Present: atraumatic, normocephalic, normal inspection Eye exam: Present: normal appearance, PERRL, EOMI. Absent: scleral icterus, conjunctival injection, periorbital swelling ENT exam: Present: normal oropharynx Respiratory exam: Present: normal lung sounds bilaterally. Absent: respiratory distress, wheezes, rales, rhonchi, stridor Cardiovascular Exam: Present: regular rate, normal rhythm, normal heart sounds. Absent: systolic murmur, diastolic murmur, rubs, gallop, clicks GI/Abdominal exam: Present: soft, normal bowel sounds. Absent: distended, tenderness, guarding, rebound, rigid Extremities exam: Present: normal inspection Neurological exam: Present: alert, oriented X3, CN II-XII intact Psychiatric exam: Present: normal affect, normal mood Skin exam: Present: warm, dry, intact, normal color. Absent: rash Course Vital Signs 10/10/21 10/10/21 09:51 11:48 Temperature 98.6 F Pulse Rate 112 H 104 H Respiratory 20 18 Rate Blood Pressure 119/77 117/84 O2 Sat by Pulse 99 99 Oximetry Medical Decision Making - Medical Decision Making This is a 21-year-old female presents to the emergency department for elevated heartbeat during COVID-19 infection. Thorough history and examination were performed. Patient is well-appearing and in no apparent distress. She is tachycardic at 112. Blood pressure stable. Afebrile. Denies chest pain, patient's, shortness of breath. EKG shows sinus tachycardia without ST or T-wave abnormality. COVID-19 is detected. Patient given large fluid bolus which improved tachycardia. Unfortunately we do not have antibodies in the hospital. Patient was discharged with Paxlovid prescription. She has no medication reactions. Return parameters discussed. Dr. Barfield is my attending. - Lab Data Lab Results 10/10/21 Range/Units 10:20 Coronavirus (PCR) Detected A (Not Detectd) Disposition Clinical Impression: COVID-19 Disposition: HOME SELF-CARE Condition: Good Instructions (If sedation given, give patient instructions): Coronavirus Disease 2019 (COVID-19) Additional Instructions: Take prescription to pharmacy for antibiotic treatment. Continue to use nasal spray at home. Use of nasal saline and warm showers/humidifiers will help with congestion. Quarantine home for 5 days. Return to the emergency department if you experience new, concerning, or worsening symptoms Is patient prescribed a controlled substance at d/c from ED?: No Referrals: Patrick Saab MD [Primary Care Provider] - 1-2 days Time of Disposition: 11:43
[2021-10-10 11:48] VITALS: BP 117/84; PULSE 104; RESP 18
== END 2021-10-10 11:48 | disposition home or self-care (01) ==
LOC: EC 09:50
DX: U07.1 COVID-19 (principal); R00.0 Tachycardia, unspecified; Z88.0 Allergy status to penicillin
CPT/HCPCS: 87635; 93005; 96360; 99285

== ENCOUNTER 2022-05-07 20:37 | Emergency (ER) | payer MEDICAID, OTHER ==
[2022-05-07 21:25] VITALS: RESP 18; TEMP 98.3
[2022-05-07 21:50] LABS: Basophils # (A) 0.1 k/uL (0-0.2); Basophils % (A) 1 %; Eosinophils # (A) 0.1 k/uL (0-0.7); Eosinophils % (A) 1 %; HCT 44.8 % (34.0-46.0); Lymphocytes % (A) 33 %; MCH 30.5 pg (25.0-35.0); MCHC 33.5 g/dL (31.0-37.0); MCV 91.2 fL (80.0-100.0); Mean Platelet Volume 6.8; Monocytes # (A) 0.5 k/uL (0-1.0); Monocytes % (A) 5 %; Neutrophils # (A) 5.3 k/uL (1.3-7.7); Neutrophils % (A) 59 %; Platelet Count 436 k/uL (150-450); RBC 4.91 m/uL (3.80-5.40); RDW 12.5 % (11.5-15.5)
[2022-05-07 21:58] LABS: ALT 26 U/L (4-34); AST 24 U/L (14-36); African American GFR (CKD) >90 (>60 ml/min/1.73 sqM); Albumin 4.7 g/dL (3.5-5.0); Alkaline Phosphatase 121 U/L (38-126); Anion Gap 11 mmol/L; Blood Urea Nitrogen 12 mg/dL (7-17); Calcium 9.8 mg/dL (8.4-10.2); Carbon Dioxide 28 mmol/L (22-30); Chloride 101 mmol/L (98-107); Glucose 81 mg/dL (74-99); Non-African American GFR(CKD) >90 (>60 ml/min/1.73 sqM); Potassium 4.4 mmol/L (3.5-5.1); Sodium 140 mmol/L (137-145); Total Bilirubin 0.5 mg/dL (0.2-1.3); Total Protein 7.9 g/dL (6.3-8.2)
[2022-05-07 22:06] LABS: INR 0.9 (<1.2); Partial Thromboplastin Time 23.7 sec (22.0-30.0); Prothrombin Time 9.9 sec (9.0-12.0)
[2022-05-07 22:23] LABS: Appearance,Urine Clear (Clear); Bacteria,Urine Occasional /hpf; Bilirubin,Urine Negative (Negative); Blood,Urine Moderate (Negative); Color,Urine Light Yellow; Glucose,Urine (UA) Negative (Negative); Ketones,Urine 2+ (Negative); Leukocyte Esterase,Urine Negative (Negative); Mucus,Urine Rare /hpf; Nitrite,Urine Negative (Negative); Protein,Urine Negative (Negative); RBC,Urine 1 /hpf (0-5); Specific Gravity,Urine 1.008 (1.001-1.035); Squamous Epithelial Cell,Urine 5 /hpf (0-4); Urobilinogen,Urine <2.0 mg/dL (<2.0); WBC,Urine 1 /hpf (0-5)
[2022-05-07 23:21] VITALS: BP 119/73
--- NOTE | 2022-05-08 01:10 | ED ---
Arrhythmia/Palpitations HPI - General Chief Complaint: Arrhythmia/Palpitations Stated Complaint: Rapid Heart Rate, Dizziness, Shortness of Breath Time Seen by Provider: 05/07/22 21:25 Source: patient Mode of arrival: ambulatory Limitations: no limitations - History of Present Illness Initial Comments: 21-year-old female presents emergency department reporting elevated heart rate. States that she works at a [employer]. She has had intermittent episodes of elevated heart rate over the past 2 weeks. Today the patient was at work and states that persistently from 2 PM to 8 PM she had an elevated heart rate in the 140s according to her watch. She has a bit of associated chest discomfort. Denies caffeine use. No recent medication changes. Has no previous history of cardiac issues. No family history of sudden cardiac . No history of DVT or PE. No calf pain or swelling. No history of thyroid issues. No concern for . No other alleviating, precipitating or modifying factors - Related Data Home Medications Medication Instructions Recorded Confirmed FLUoxetine HCL [PROzac] 60 mg PO DAILY 04/08/14 09/15/20 Cyanocobalamin (Vitamin B-12) 2,000 mcg PO DAILY 09/15/20 09/15/20 [Vitamin B-12] busPIRone HCl [Buspar] 10 mg PO BID 09/15/20 09/15/20 hydrOXYzine HCL 10 mg PO HS PRN 09/15/20 09/15/20 Previous Rx's Medication Instructions Recorded Cephalexin [Keflex] 500 mg PO BID #14 cap 05/08/22 Allergies Allergy/AdvReac Type Severity Reaction Status Date / Time Penicillins Allergy Rash/Hives Verified 05/07/22 21:22 Review of Systems ROS Statement: Those systems with pertinent positive or pertinent negative responses have been documented in the HPI. ROS Other: All systems not noted in ROS Statement are negative. Past Medical History Past Medical History: No Reported History History of Any Multi-Drug Resistant Organisms: None Reported Past Surgical History: No Surgical Hx Reported Past Psychological History: Anxiety, Depression Smoking Status: Never smoker Past Alcohol Use History: Occasional Past Drug Use History: Marijuana General Exam Limitations: no limitations General appearance: alert, in no apparent distress Head exam: Present: atraumatic, normocephalic, normal inspection Eye exam: Present: normal appearance, PERRL, EOMI. Absent: scleral icterus, conjunctival injection, periorbital swelling ENT exam: Present: normal exam, mucous membranes moist Neck exam: Present: normal inspection. Absent: tenderness, meningismus, lymphadenopathy Respiratory exam: Present: normal lung sounds bilaterally. Absent: respiratory distress, wheezes, rales, rhonchi, stridor Cardiovascular Exam: Present: normal rhythm, tachycardia, normal heart sounds. Absent: systolic murmur, diastolic murmur, rubs, gallop, clicks GI/Abdominal exam: Present: soft, normal bowel sounds. Absent: distended, tenderness, guarding, rebound, rigid Extremities exam: Present: normal inspection, full ROM, normal capillary refill. Absent: tenderness, pedal edema, joint swelling, calf tenderness Back exam: Present: normal inspection Neurological exam: Present: alert, oriented X3, CN II-XII intact Psychiatric exam: Present: normal affect, normal mood Skin exam: Present: warm, dry, intact, normal color. Absent: rash Course Vital Signs 05/07/22 05/07/22 05/08/22 21:23 23:21 01:54 Temperature 98.3 F Pulse Rate 114 H 101 H 94 Respiratory 18 18 Rate Blood Pressure 138/76 119/73 O2 Sat by Pulse 98 100 100 Oximetry EKG Findings - EKG Comments: EKG Findings:: EKG demonstrates sinus rhythm with a rate of 79. OK interval 149. QRS 89. QTC of 385. No acute ST segment elevations or depressions Medical Decision Making - Medical Decision Making Was pt. sent in by a medical professional or institution (, PA, COAL MINER, urgent care, hospital, or detention...) When possible be specific @ -No Did you speak to anyone other than the patient for history (EMS, parent, family, police, friend...)? What history was obtained from this source @ -No Did you review nursing and triage notes (agree or disagree)? Why? @ -I reviewed and agree with nursing and triage notes Were old charts reviewed (outside hosp., previous admission, EMS record, old EKG, old radiological studies, urgent care reports/EKG's, detention records)? Report findings @ -No old charts were reviewed Differential Diagnosis (chest pain, altered mental status, abdominal pain women, abdominal pain men, vaginal bleeding, weakness, fever, dyspnea, syncope, head ache, dizziness, GI bleed, back pain, seizure, CVA, palpatations, mental health, musculoskeletal)? @ -SVT, afib, thyroid disease, EKG interpreted by me (3pts min.). @ -As above X-rays interpreted by me (1pt min.). @ -Yes CT interpreted by me (1pt min.). @ -None done U/S interpreted by me (1pt. min.). @ -None done What testing was considered but not performed or refused? (CT, X-rays, U/S, labs)? Why? @ -None What meds were considered but not given or refused? Why? @ -None Did you discuss the management of the patient with other professionals (professionals i.e. Dr., PA, COAL MINER, lab, RT, psych nurse, social services director, data technician, teacher, fourth officer, clinical case manager)? Give summary @ -No Was smoking cessation discussed for >3mins.? @ -No Was critical care preformed (if so, how long)? @ -No Were there social determinants of health that impacted care today? How? (Homelessness, low income, unemployed, alcoholism, drug addiction, transportation, low edu. Level, literacy, decrease access to med. care, correction, rehab)? @ -No Was there de-escalation of care discussed even if they declined (Discuss DNR or withdrawal of care, Hospice)? DNR status @ -No What co-morbidities impacted this encounter? (DM, HTN, Smoking, COPD, CAD, Cancer, CVA, ARF, Chemo, Hep., AIDS, mental health diagnosis, sleep apnea, morbid obesity)? @ -None Was patient admitted / discharged? Hospital course, mention meds given and route, prescriptions, significant lab abnormalities, going to OR and other pertinent info. @ -Arrival patient was placed into room 9. A thorough history and physical exam is performed. IV access established laboratory studies are conducted. D- dimer negative. Troponin negative. Thyroid studies within normal limits. Patient was given a liter bolus normal saline. Chest x-ray demonstrates no acute process. Urinalysis does demonstrate occasional bacteria. Discussed treating this versus getting a urine culture. Patient would prefer to be treated at this time. She is given a dose of Keflex. Will be placed on Keflex in the outpatient setting. She has already talked to her primary care doctor in regards to her symptoms and already [facility] . I recommend Holter and echo. Return for any new or worsening symptoms. Patient was agreeable to treatment plan she was discharged home in stable condition Undiagnosed new problem with uncertain prognosis? @ -Yes Drug Therapy requiring intensive monitoring for toxicity (Heparin, Nitro, Insulin, Cardizem)? @ -No Were any procedures done? @ -No Diagnosis/symptom? @ -acute tachycardia, abn ua Acute, or Chronic, or Acute on Chronic? @ -acute Uncomplicated (without systemic symptoms) or Complicated (systemic symptoms)? @ -complicated Side effects of treatment? @ -allergic reaction Exacerbation, Progression, or Severe Exacerbation? @ -No Poses a threat to life or bodily function? How? (Chest pain, USA, CT, pneumonia, PE, COPD, DKA, ARF, appy, cholecystitis, CVA, Diverticulitis, Homicidal, Suicidal, threat to staff... and all critical care pts) @ -yes - Lab Data Result diagrams: 05/07/22 21:33 05/07/22 21:33 Lab Results 05/07/22 05/07/22 05/07/22 Range/Units 21:33 21:33 21:33 WBC 9.0 (3.8-10.6) k/uL RBC 4.91 (3.80-5.40) m/uL Hgb 15.0 (11.4-16.0) gm/dL Hct 44.8 (34.0-46.0) % MCV 91.2 (80.0-100.0) fL MCH 30.5 (25.0-35.0) pg MCHC 33.5 (31.0-37.0) g/dL RDW 12.5 (11.5-15.5) % Plt Count 436 (150-450) k/uL MPV 6.8 Neutrophils % 59 % Lymphocytes % 33 % Monocytes % 5 % Eosinophils % 1 % Basophils % 1 % Neutrophils # 5.3 (1.3-7.7) k/uL Lymphocytes # 3.0 (1.0-4.8) k/uL Monocytes # 0.5 (0-1.0) k/uL Eosinophils # 0.1 (0-0.7) k/uL Basophils # 0.1 (0-0.2) k/uL PT 9.9 (9.0-12.0) sec INR 0.9 (<1.2) APTT 23.7 (22.0-30.0) sec D-Dimer (<0.60) mg/L FEU Sodium 140 (137-145) mmol/L Potassium 4.4 (3.5-5.1) mmol/L Chloride 101 (98-107) mmol/L Carbon Dioxide 28 (22-30) mmol/L Anion Gap 11 mmol/L BUN 12 (7-17) mg/dL Creatinine 0.72 (0.52-1.04) mg/dL Est GFR (CKD-EPI)AfAm >90 (>60 ml/min/1.73 sqM) Est GFR (CKD-EPI)NonAf >90 (>60 ml/min/1.73 sqM) Glucose 81 (74-99) mg/dL Calcium 9.8 (8.4-10.2) mg/dL Total Bilirubin 0.5 (0.2-1.3) mg/dL AST 24 (14-36) U/L ALT 26 (4-34) U/L Alkaline Phosphatase 121 (38-126) U/L Troponin I (0.000-0.034) ng/mL Total Protein 7.9 (6.3-8.2) g/dL Albumin 4.7 (3.5-5.0) g/dL TSH (0.465-4.680) mIU/L Urine Color Urine Appearance (Clear) Urine pH (5.0-8.0) Ur Specific [employer] (1.001-1.035) Urine Protein (Negative) Urine Glucose (UA) (Negative) Urine Ketones (Negative) Urine Blood (Negative) Urine Nitrite (Negative) Urine Bilirubin (Negative) Urine Urobilinogen (<2.0) mg/dL Ur Leukocyte Esterase (Negative) Urine RBC (0-5) /hpf Urine WBC (0-5) /hpf Ur Squamous Epith Cells (0-4) /hpf Urine Bacteria (None) /hpf Urine Mucus (None) /hpf Urine HCG, Qual (Not Detectd) 05/07/22 05/07/22 05/07/22 Range/Units 21:33 21:33 21:33 WBC (3.8-10.6) k/uL RBC (3.80-5.40) m/uL Hgb (11.4-16.0) gm/dL Hct (34.0-46.0) % MCV (80.0-100.0) fL MCH (25.0-35.0) pg MCHC (31.0-37.0) g/dL RDW (11.5-15.5) % Plt Count (150-450) k/uL MPV Neutrophils % % Lymphocytes % % Monocytes % % Eosinophils % % Basophils % % Neutrophils # (1.3-7.7) k/uL Lymphocytes # (1.0-4.8) k/uL Monocytes # (0-1.0) k/uL Eosinophils # (0-0.7) k/uL Basophils # (0-0.2) k/uL PT (9.0-12.0) sec INR (<1.2) APTT (22.0-30.0) sec D-Dimer 0.28 (<0.60) mg/L FEU Sodium (137-145) mmol/L Potassium (3.5-5.1) mmol/L Chloride (98-107) mmol/L Carbon Dioxide (22-30) mmol/L Anion Gap mmol/L BUN (7-17) mg/dL Creatinine (0.52-1.04) mg/dL Est GFR (CKD-EPI)AfAm (>60 ml/min/1.73 sqM) Est GFR (CKD-EPI)NonAf (>60 ml/min/1.73 sqM) Glucose (74-99) mg/dL Calcium (8.4-10.2) mg/dL Total Bilirubin (0.2-1.3) mg/dL AST (14-36) U/L ALT (4-34) U/L Alkaline Phosphatase (38-126) U/L Troponin I <0.012 (0.000-0.034) ng/mL Total Protein (6.3-8.2) g/dL Albumin (3.5-5.0) g/dL TSH 2.660 (0.465-4.680) mIU/L Urine Color Urine Appearance (Clear) Urine pH (5.0-8.0) Ur Specific [employer] (1.001-1.035) Urine Protein (Negative) Urine Glucose (UA) (Negative) Urine Ketones (Negative) Urine Blood (Negative) Urine Nitrite (Negative) Urine Bilirubin (Negative) Urine Urobilinogen (<2.0) mg/dL Ur Leukocyte Esterase (Negative) Urine RBC (0-5) /hpf Urine WBC (0-5) /hpf Ur Squamous Epith Cells (0-4) /hpf Urine Bacteria (None) /hpf Urine Mucus (None) /hpf Urine HCG, Qual (Not Detectd) 05/07/22 05/07/22 Range/Units 22:15 22:15 WBC (3.8-10.6) k/uL RBC (3.80-5.40) m/uL Hgb (11.4-16.0) gm/dL Hct (34.0-46.0) % MCV (80.0-100.0) fL MCH (25.0-35.0) pg MCHC (31.0-37.0) g/dL RDW (11.5-15.5) % Plt Count (150-450) k/uL MPV Neutrophils % % Lymphocytes % % Monocytes % % Eosinophils % % Basophils % % Neutrophils # (1.3-7.7) k/uL Lymphocytes # (1.0-4.8) k/uL Monocytes # (0-1.0) k/uL Eosinophils # (0-0.7) k/uL Basophils # (0-0.2) k/uL PT (9.0-12.0) sec INR (<1.2) APTT (22.0-30.0) sec D-Dimer (<0.60) mg/L FEU Sodium (137-145) mmol/L Potassium (3.5-5.1) mmol/L Chloride (98-107) mmol/L Carbon Dioxide (22-30) mmol/L Anion Gap mmol/L BUN (7-17) mg/dL Creatinine (0.52-1.04) mg/dL Est GFR (CKD-EPI)AfAm (>60 ml/min/1.73 sqM) Est GFR (CKD-EPI)NonAf (>60 ml/min/1.73 sqM) Glucose (74-99) mg/dL Calcium (8.4-10.2) mg/dL Total Bilirubin (0.2-1.3) mg/dL AST (14-36) U/L ALT (4-34) U/L Alkaline Phosphatase (38-126) U/L Troponin I (0.000-0.034) ng/mL Total Protein (6.3-8.2) g/dL Albumin (3.5-5.0) g/dL TSH (0.465-4.680) mIU/L Urine Color Light Yellow Urine Appearance Clear (Clear) Urine pH 5.0 (5.0-8.0) Ur Specific [employer] 1.008 (1.001-1.035) Urine Protein Negative (Negative) Urine Glucose (UA) Negative (Negative) Urine Ketones 2+ H (Negative) Urine Blood Moderate H (Negative) Urine Nitrite Negative (Negative) Urine Bilirubin Negative (Negative) Urine Urobilinogen <2.0 (<2.0) mg/dL Ur Leukocyte Esterase Negative (Negative) Urine RBC 1 (0-5) /hpf Urine WBC 1 (0-5) /hpf Ur Squamous Epith Cells 5 H (0-4) /hpf Urine Bacteria Occasional H (None) /hpf Urine Mucus Rare H (None) /hpf Urine HCG, Qual Not Detected (Not Detectd) Disposition Clinical Impression: Tachycardia, Abnormal urinalysis Disposition: HOME SELF-CARE Condition: Stable Instructions (If sedation given, give patient instructions): Heart Palpitations (ED) Additional Instructions: Please follow-up with the cardiology office. You need an echo and Holter monitoring for your elevated heart rate. Take the antibiotic for your abnormal urine findings and return for any new or worsening symptoms Prescriptions: Cephalexin [Keflex] 500 mg PO BID #14 cap Is patient prescribed a controlled substance at d/c from ED?: No Referrals: Patrick Saab MD [Primary Care Provider] - 1-2 days [facility] [Provider [facility]] - 1-2 days Time of Disposition: 02:04
--- NOTE | 2022-05-08 01:21 | XR ---
EXAMINATION TYPE: XR chest 2V DATE OF EXAM: 05/08/2022 COMPARISON: 09/15/2020 HISTORY: Chest pain TECHNIQUE: 2 views FINDINGS: Heart and mediastinum are normal. Lungs are clear. Diaphragm is normal. Bony thorax appears intact. There are chest leads. IMPRESSION: Normal chest. No change.
[2022-05-08 01:55] VITALS: PULSE 94
[2022-05-08] MEDS ORDERED: CEPHALEXIN 500 MG CAP PO STA (01:59)
== END 2022-05-08 02:18 | disposition home or self-care (01) ==
LOC: EC 20:37
DX: R00.0 Tachycardia, unspecified (principal); R82.90 Unspecified abnormal findings in urine; F32.A Depression, unspecified; F41.9 Anxiety disorder, unspecified; F12.90 Cannabis use, unspecified, uncomplicated; Z88.0 Allergy status to penicillin; Z79.899 Other long term (current) drug therapy
CPT/HCPCS: 36415; 71046; 80053; 81001; 81025; 84443; 84484; 85025; 85379; 85610; 85730; 93005; 99285

== ENCOUNTER 2022-06-13 08:55 | Day surgery (SDC) | payer MEDICAID ==
[2022-06-07 13:16] VITALS: BMI 39.2
[~2022-06-13 08:55] MED LIST: SODIUM CHLORIDE 0.9% 1,000 ML IV SCH
[2022-06-13] MEDS ORDERED: SODIUM CHLORIDE 0.9% 500 ML 500 ML IV ONE (09:08)
[2022-06-13 09:17] VITALS: BP 121/68; PULSE 96; RESP 16; TEMP 98.8
--- NOTE | 2022-06-13 18:41 | P.EPPROC ---
- EP Procedure Note Electrophysiology Procedure Note: Diagnosis Recurrent syncope Twelve-lead EKG Sinus mechanism normal HI narrow QRS normal ST segments Tilt table test per protocol Baseline blood pressure 103/60 mmHg, Baseline heart rate 84 beats a minute Patient was tilted upright at an angle of 70 per protocol mild increase in heart rate No change in blood pressure Peak heart rate 113 bpm Patient had a variety of symptoms including shortness of breath nausea warm dizziness and blurred vision When she was laid supine heart rate came down to 89 beats a minute Impression Normal twelve-lead EKG Mild Orthostatic intolerance, symptomatic
== END 2022-06-13 11:32 | disposition home or self-care (01) ==
LOC: CATHEP 08:55
PROVIDERS: ATTEND Internal Medicine Clinical Cardiac Electrophysiology
DX: R55 Syncope and collapse (principal); G90.A Postural orthostatic tachycardia syndrome [POTS]
CPT/HCPCS: 81025; 93660

== ENCOUNTER 2022-12-04 01:34 | Emergency (ER) | payer MEDICAID ==
[2022-12-04 01:40] VITALS: RESP 18
[2022-12-04 03:06] LABS: Basophils % (A) 0 %; Eosinophils # (A) 0.1 k/uL (0-0.7); Eosinophils % (A) 1 %; HCT 39.3 % (34.0-46.0); HGB 13.6 gm/dL (11.4-16.0); Lymphocytes # (A) 2.7 k/uL (1.0-4.8); Lymphocytes % (A) 46 %; MCH 31.7 pg (25.0-35.0); MCHC 34.5 g/dL (31.0-37.0); Mean Platelet Volume 7.1; Monocytes # (A) 0.7 k/uL (0-1.0); Monocytes % (A) 11 %; Neutrophils # (A) 2.4 k/uL (1.3-7.7); Neutrophils % (A) 40 %; Platelet Count 331 k/uL (150-450); RBC 4.27 m/uL (3.80-5.40); RDW 12.1 % (11.5-15.5)
[2022-12-04 03:14] LABS: ALT 25 U/L (4-34); AST 36 U/L (14-36); Acetaminophen <10.0 ug/mL; African American GFR (CKD) >90 (>60 ml/min/1.73 sqM); Alkaline Phosphatase 88 U/L (38-126); Anion Gap 10 mmol/L; Blood Urea Nitrogen 15 mg/dL (7-17); Calcium 9.1 mg/dL (8.4-10.2); Carbon Dioxide 25 mmol/L (22-30); Chloride 104 mmol/L (98-107); Glucose 80 mg/dL (74-99); Non-African American GFR(CKD) >90 (>60 ml/min/1.73 sqM); Potassium 3.8 mmol/L (3.5-5.1); Salicylate <1.0 mg/dL; Sodium 139 mmol/L (137-145); Total Bilirubin 0.3 mg/dL (0.2-1.3); Total Protein 6.9 g/dL (6.3-8.2)
[2022-12-04 05:16] LABS: Amphetamine Screen,Urine Not Detected (NotDetected); Barbiturate Screen,Urine Not Detected (NotDetected); Benzodiazepines Screen,Urine Detected (NotDetected); Cocaine Screen,Urine Not Detected (NotDetected); Methadone Screen, Urine Not Detected (NotDetected); Opiate Screen,Urine Not Detected (NotDetected); Oxycodone Screen, Urine Not Detected (NotDetected); Phencyclidine Screen,Urine Not Detected (NotDetected); Tricyclic Antidepressant,Urine Not Detected (NotDetected); Urn Cannabinoid Scrn Not Detected (NotDetected)
--- NOTE | 2022-12-04 06:54 | ED ---
Psych HPI - General Source: patient Mode of arrival: ambulatory <Ashlee Tobin - Last Filed: 12/04/22 06:49> <Calixto Woo - Last Filed: 12/04/22 13:48> - General Chief Complaint: Psychiatric Symptoms Stated Complaint: Mental health Time Seen by Provider: 12/04/22 01:59 - History of Present Illness Initial Comments: Dionne is a pleasant 22 yo F presents the emergency department today for psychiatric evaluation. Patient states she has passive suicidal thoughts and feels hopeless and apathetic. Patient states that she just feels like she completely dissociates from her body is not connected to her by 4 people around her. She states that she doesn't have any intention of harming herself but has thoughts that if something were to harm her she would be a piece of. Patient states when she is driving she has thoughts like if a car came towards her she wouldn't make any effort to avoid collision she has no desire to preserve her life. (Ashlee Tobin) - Related Data Home Medications Medication Instructions Recorded Confirmed ALPRAZolam [Xanax] 0.5 mg PO TID 06/07/22 12/04/22 buPROPion XL [Wellbutrin XL] 300 mg PO DAILY 06/07/22 12/04/22 nadoloL 20 mg PO BID 12/04/22 12/04/22 Allergies Allergy/AdvReac Type Severity Reaction Status Date / Time Penicillins Allergy Rash/Hives Verified 12/04/22 11:04 Review of Systems ROS Other: All systems not noted in ROS Statement are negative. <Ashlee Tobin - Last Filed: 12/04/22 06:49> ROS Other: All systems not noted in ROS Statement are negative. <Calixto Woo - Last Filed: 12/04/22 13:48> ROS Statement: Those systems with pertinent positive or pertinent negative responses have been documented in the HPI. Past Medical History Past Medical History: No Reported History Additional Past Medical History / Comment(s): SEE DR JACKSON'S H&P History of Any Multi-Drug Resistant Organisms: None Reported Past Surgical History: No Surgical Hx Reported Additional Past Surgical History / Comment(s): D&C Past Anesthesia/Blood Transfusion Reactions: No Reported Reaction Past Psychological History: Anxiety, Depression Smoking Status: Never smoker Past Alcohol Use History: Occasional Past Drug Use History: None Reported <Ashlee Tobin - Last Filed: 12/04/22 06:49> General Exam Limitations: no limitations <Ashlee Tobin - Last Filed: 12/04/22 06:49> - General Exam Comments Initial Comments: Physical Exam GENERAL: Patient is well-developed and well-nourished. Patient is nontoxic and well-hydrated and is in no distress. HENT: Normocephalic, Atraumatic. EYES: PERRL, EOMI PULMONARY: Unlabored respirations. CARDIOVASCULAR: RRR Warm and well perfused extremities ABDOMEN: Non-distended SKIN: No rashes or bruising : Deferred NEUROLOGIC: Alert and oriented Normal speech Normal gait MUSCULOSKELETAL: Moving all extremities with no apparent injury PSYCHIATRIC: Flat affect, hopeless (Ashlee Tobin) Course Vital Signs 12/04/22 12/04/22 01:36 06:00 Temperature 98.5 F Pulse Rate 89 74 Respiratory 18 18 Rate Blood Pressure 126/82 122/70 O2 Sat by Pulse 99 98 Oximetry Medical Decision Making - Lab Data Result diagrams: 12/04/22 02:51 12/04/22 02:51 <Ashlee Tobin - Last Filed: 12/04/22 06:49> - Lab Data Result diagrams: 12/04/22 02:51 12/04/22 02:51 <Calixto Woo - Last Filed: 12/04/22 13:48> - Medical Decision Making Was pt. sent in by a medical professional or institution (, PA, COMPUTER CONSULTANT, urgent care, hospital, or custodial...) When possible be specific @ -[No] Did you speak to anyone other than the patient for history (EMS, parent, family, police, friend...)? What history was obtained from this source @ -[No] Did you review nursing and triage notes (agree or disagree)? Why? @ -[I reviewed and agree with nursing and triage notes] Were old charts reviewed (outside hosp., previous admission, EMS record, old EKG, old radiological studies, urgent care reports/EKG's, custodial records)? Report findings @ -[No old charts were reviewed] Differential Diagnosis (chest pain, altered mental status, abdominal pain women, abdominal pain men, vaginal bleeding, weakness, fever, dyspnea, syncope, headache, dizziness, GI bleed, back pain, seizure, CVA, palpatations, mental health, musculoskeletal)? @ -Differential Mental Health Depression, anxiety, bipolar, psychosis, schizophrenia, borderline personality, situational depression, adjustment disorder, behavioral disorder, brain tumor, malingering, substance abuse, encephalopathy, medication reaction, dementia, hypothyroidism, degenerative neurologic disorder, lupus.... This is not meant to be all-inclusive list EKG interpreted by me (3pts min.). @ -[As above] X-rays interpreted by me (1pt min.). @ -[None done] CT interpreted by me (1pt min.). @ -[None done] U/S interpreted by me (1pt. min.). @ -[None done] What testing was considered but not performed or refused? (CT, X-rays, U/S, labs)? Why? @ -[None] What meds were considered but not given or refused? Why? @ -[None] Did you discuss the management of the patient with other professionals (professionals i.e. , PA, COMPUTER CONSULTANT, lab, RT, psych nurse, nephrology social worker, cuff knitter, teacher, conservation enforcement officer, high risk case manager)? Give summary @ -Psych nurse Was smoking cessation discussed for >3mins.? @ -[No] Was critical care preformed (if so, how long)? @ -[No] Were there social determinants of health that impacted care today? How? (Homelessness, low income, unemployed, alcoholism, drug addiction, transportation, low edu. Level, literacy, decrease access to med. care, snf, rehab)? @ -[No] Was there de-escalation of care discussed even if they declined (Discuss DNR or withdrawal of care, Hospice)? DNR status @ -[No] What co-morbidities impacted this encounter? (DM, HTN, Smoking, COPD, CAD, Cancer, CVA, ARF, Chemo, Hep., AIDS, mental health diagnosis, sleep apnea, morbi d obesity)? @ -[None] Was patient admitted / discharged? Hospital course, mention meds given and route, prescriptions, significant lab abnormalities, going to OR and other pertinent info. Patient care signed out to Dr Woo pending evaluation by Psychiatric Nurse (Ashlee Tobin) Patient had been medically cleared and evaluated by EPS in the emergency department. She is felt to be safe for discharge. She's given return parameters. (Calixto Woo) - Lab Data Lab Results 12/04/22 12/04/22 12/04/22 Range/Units 02:51 02:51 02:51 WBC 6.0 (3.8-10.6) k/uL RBC 4.27 (3.80-5.40) m/uL Hgb 13.6 (11.4-16.0) gm/dL Hct 39.3 (34.0-46.0) % MCV 92.0 (80.0-100.0) fL MCH 31.7 (25.0-35.0) pg MCHC 34.5 (31.0-37.0) g/dL RDW 12.1 (11.5-15.5) % Plt Count 331 (150-450) k/uL MPV 7.1 Neutrophils % 40 % Lymphocytes % 46 % Monocytes % 11 % Eosinophils % 1 % Basophils % 0 % Neutrophils # 2.4 (1.3-7.7) k/uL Lymphocytes # 2.7 (1.0-4.8) k/uL Monocytes # 0.7 (0-1.0) k/uL Eosinophils # 0.1 (0-0.7) k/uL Basophils # 0.0 (0-0.2) k/uL Sodium (137-145) mmol/L Potassium (3.5-5.1) mmol/L Chloride (98-107) mmol/L Carbon Dioxide (22-30) mmol/L Anion Gap mmol/L BUN (7-17) mg/dL Creatinine (0.52-1.04) mg/dL Est GFR (CKD-EPI)AfAm (>60 ml/min/1.73 sqM) Est GFR (CKD-EPI)NonAf (>60 ml/min/1.73 sqM) Glucose (74-99) mg/dL Calcium (8.4-10.2) mg/dL Total Bilirubin (0.2-1.3) mg/dL AST (14-36) U/L ALT (4-34) U/L Alkaline Phosphatase (38-126) U/L Total Protein (6.3-8.2) g/dL Albumin (3.5-5.0) g/dL Urine HCG, Qual Not Detected (Not Detectd) Salicylates mg/dL Urine Opiates Screen Not Detected (NotDetected) Ur Oxycodone Screen Not Detected (NotDetected) Urine Methadone Screen Not Detected (NotDetected) Ur Propoxyphene Screen Not Detected (NotDetected) Acetaminophen ug/mL Ur Barbiturates Screen Not Detected (NotDetected) U Tricyclic Antidepress Not Detected (NotDetected) Ur Phencyclidine Scrn Not Detected (NotDetected) Ur Amphetamines Screen Not Detected (NotDetected) U Methamphetamines Scrn Not Detected (NotDetected) U Benzodiazepines Scrn Detected H (NotDetected) Urine Cocaine Screen Not Detected (NotDetected) U Marijuana (THC) Screen Not Detected (NotDetected) 12/04/22 Range/Units 02:51 WBC (3.8-10.6) k/uL RBC (3.80-5.40) m/uL Hgb (11.4-16.0) gm/dL Hct (34.0-46.0) % MCV (80.0-100.0) fL MCH (25.0-35.0) pg MCHC (31.0-37.0) g/dL RDW (11.5-15.5) % Plt Count (150-450) k/uL MPV Neutrophils % % Lymphocytes % % Monocytes % % Eosinophils % % Basophils % % Neutrophils # (1.3-7.7) k/uL Lymphocytes # (1.0-4.8) k/uL Monocytes # (0-1.0) k/uL Eosinophils # (0-0.7) k/uL Basophils # (0-0.2) k/uL Sodium 139 (137-145) mmol/L Potassium 3.8 (3.5-5.1) mmol/L Chloride 104 (98-107) mmol/L Carbon Dioxide 25 (22-30) mmol/L Anion Gap 10 mmol/L BUN 15 (7-17) mg/dL Creatinine 0.53 (0.52-1.04) mg/dL Est GFR (CKD-EPI)AfAm >90 (>60 ml/min/1.73 sqM) Est GFR (CKD-EPI)NonAf >90 (>60 ml/min/1.73 sqM) Glucose 80 (74-99) mg/dL Calcium 9.1 (8.4-10.2) mg/dL Total Bilirubin 0.3 (0.2-1.3) mg/dL AST 36 (14-36) U/L ALT 25 (4-34) U/L Alkaline Phosphatase 88 (38-126) U/L Total Protein 6.9 (6.3-8.2) g/dL Albumin 4.0 (3.5-5.0) g/dL Urine HCG, Qual (Not Detectd) Salicylates <1.0 mg/dL Urine Opiates Screen (NotDetected) Ur Oxycodone Screen (NotDetected) Urine Methadone Screen (NotDetected) Ur Propoxyphene Screen (NotDetected) Acetaminophen <10.0 ug/mL Ur Barbiturates Screen (NotDetected) U Tricyclic Antidepress (NotDetected) Ur Phencyclidine Scrn (NotDetected) Ur Amphetamines Screen (NotDetected) U Methamphetamines Scrn (NotDetected) U Benzodiazepines Scrn (NotDetected) Urine Cocaine Screen (NotDetected) U Marijuana (THC) Screen (NotDetected) Disposition <Ashlee Tobin P - Last Filed: 12/04/22 06:49> Is patient prescribed a controlled substance at d/c from ED?: No Time of Disposition: 13:48 <Calixto Woo - Last Filed: 12/04/22 13:48> Clinical Impression: Depression Disposition: HOME SELF-CARE Condition: Fair Instructions (If sedation given, give patient instructions): Depression (ED) Referrals: Patrick Saab MD [Primary Care Provider] - 1-2 days
[2022-12-04 19:36] VITALS: BP 110/79; PULSE 81; TEMP 98.4
== END 2022-12-04 14:16 | disposition home or self-care (01) ==
LOC: EC 01:34
DX: F32.A Depression, unspecified (principal); F41.9 Anxiety disorder, unspecified; Z79.899 Other long term (current) drug therapy; Z88.0 Allergy status to penicillin
CPT/HCPCS: 36415; 80053; 80143; 80179; 80306; 81025; 82075; 85025; 99285

== ENCOUNTER 2023-01-23 17:14 | Emergency (ER) | payer MEDICAID ==
[2023-01-23 17:30] VITALS: TEMP 98.4
[2023-01-23] MEDS ORDERED: KETOROLAC 15 MG/ML 1 ML VIAL IVP STA (17:52)
[2023-01-23] MEDS ORDERED: SODIUM CHLORIDE 0.9% 1,000 ML IV STA (17:52)
--- NOTE | 2023-01-23 17:52 | ED ---
Chest Pain HPI - General Chief Complaint: Chest Pain Stated Complaint: Chest Pressure,Had Arm Control Remove Recent Time Seen by Provider: 01/23/23 17:30 Source: patient, RN notes reviewed, old records reviewed Mode of arrival: ambulatory Limitations: no limitations - History of Present Illness Initial Comments: This is a 22-year-old female to the emergency department for evaluation pain here in the ER. Pain is severe especially with a deep breath. Patient recently had medication change and concern for the shortness of breath. Patient having shortness of breath for the last 3 days. Patient is concern for a blood clot as she recently had prior surgery of control removed from arm. Pain in the left arm pain or back pain in her chest. MD Complaint: chest pain -: days(s) (3) Pain Location: substernal, left chest Pain Radiation: back Severity: moderate Severity scale (1-10): 6 Quality: sharp Consistency: constant Improves With: nothing Worsens With: nothing Anginal Symptoms: nausea, dyspnea, sense of impending doom Other Symptoms: palpitations Treatments Prior to Arrival: none - Related Data On Oral Contraceptives: No Home Medications Medication Instructions Recorded Confirmed ALPRAZolam [Xanax] 0.5 mg PO TID 06/07/22 01/31/23 buPROPion XL [Wellbutrin XL] 300 mg PO DAILY 06/07/22 01/31/23 nadoloL 20 mg PO BID 12/04/22 01/31/23 Sertraline HCl [Zoloft] 50 mg PO DAILY 01/31/23 01/31/23 Allergies Allergy/AdvReac Type Severity Reaction Status Date / Time Penicillins Allergy Rash/Hives Verified 01/31/23 07:51 Review of Systems ROS Statement: Those systems with pertinent positive or pertinent negative responses have been documented in the HPI. ROS Other: All systems not noted in ROS Statement are negative. EKG Findings - EKG Comments: EKG Findings:: EKG is sinus 92 MO 153 QRS 82 QTC 389 - EKG Results: EKG: interpreted by YULIA Past Medical History Past Medical History: No Reported History Additional Past Medical History / Comment(s): SEE DR JACKSON'S H&P History of Any Multi-Drug Resistant Organisms: None Reported Past Surgical History: No Surgical Hx Reported Additional Past Surgical History / Comment(s): D&C Past Anesthesia/Blood Transfusion Reactions: No Reported Reaction Past Psychological History: Anxiety, Depression Smoking Status: Never smoker Past Alcohol Use History: Occasional Past Drug Use History: None Reported General Exam Limitations: no limitations General appearance: alert, in no apparent distress Head exam: Present: atraumatic, normocephalic, normal inspection Eye exam: Present: normal appearance, PERRL, EOMI. Absent: scleral icterus, conjunctival injection, periorbital swelling ENT exam: Present: normal exam, mucous membranes moist Neck exam: Present: normal inspection. Absent: tenderness, meningismus, lymphadenopathy Respiratory exam: Present: normal lung sounds bilaterally. Absent: respiratory distress, wheezes, rales, rhonchi, stridor Cardiovascular Exam: Present: regular rate, normal rhythm, normal heart sounds. Absent: systolic murmur, diastolic murmur, rubs, gallop, clicks GI/Abdominal exam: Present: soft, normal bowel sounds. Absent: distended, tenderness, guarding, rebound, rigid Extremities exam: Present: normal inspection, full ROM, normal capillary refill. Absent: tenderness, pedal edema, joint swelling, calf tenderness Back exam: Present: normal inspection Neurological exam: Present: alert, oriented X3, CN II-XII intact Psychiatric exam: Present: normal affect, normal mood Skin exam: Present: warm, dry, intact, normal color. Absent: rash Course Vital Signs 01/23/23 01/23/23 01/23/23 17:18 17:44 17:50 Temperature 98.4 F Pulse Rate 104 H 90 Respiratory 20 13 Rate Blood Pressure 109/75 118/80 O2 Sat by Pulse 99 98 100 Oximetry 01/23/23 01/23/23 01/23/23 18:00 18:10 18:30 Temperature Pulse Rate 92 93 92 Respiratory 10 L 26 H 11 L Rate Blood Pressure 108/73 O2 Sat by Pulse 100 100 100 Oximetry 01/23/23 01/23/23 01/23/23 18:40 18:50 19:00 Temperature Pulse Rate 91 89 98 Respiratory 28 H 16 23 Rate Blood Pressure 105/72 O2 Sat by Pulse 100 97 98 Oximetry 01/23/23 01/23/23 01/23/23 19:10 19:20 19:30 Temperature Pulse Rate 93 85 90 Respiratory 13 22 10 L Rate Blood Pressure 118/77 O2 Sat by Pulse 99 93 L 99 Oximetry 11/01/23/23 01/23/23 19:40 19:50 20:00 Temperature Pulse Rate 82 88 86 Respiratory 19 19 22 Rate Blood Pressure 115/68 O2 Sat by Pulse 100 99 99 Oximetry 01/23/23 01/23/23 01/23/23 20:10 20:20 20:30 Temperature Pulse Rate 90 87 87 Respiratory 12 19 20 Rate Blood Pressure 118/79 O2 Sat by Pulse 99 99 98 Oximetry 01/23/23 01/23/23 20:40 20:50 Temperature Pulse Rate 84 84 Respiratory 18 10 L Rate Blood Pressure 102/74 O2 Sat by Pulse 100 100 Oximetry - Reevaluation(s) Reevaluation #1: Medical record is reviewed Reevaluation #2: Patient still has episodic chest pain here in the ER but no abdominal pain no nausea vomiting Reevaluation #3: Patient informed results and questions answered Reevaluation #4: Was pt. sent in by a medical professional or institution (, PA, MACHINE ROOM OPERATOR, urgent care, hospital, or [place] [facility] facility...) When possible be specific @ -no Did you speak to anyone other than the patient for history (EMS, parent, family, police, friend...)? What history was obtained from this source @ -no Did you review nursing and triage notes (agree or disagree)? Why? @ -agree Are old charts reviewed (outside hosp., previous admission, EMS record, old EKG, old radiological studies, urgent care reports/EKG's, [place] [facility] [place] records)? Report findings @ -yes Differential Diagnosis (chest pain, altered mental status, abdominal pain women, abdominal pain men, vaginal bleeding, weakness, fever, dyspnea, syncope, headache, dizziness, GI bleed, back pain, seizure, CVA, palpatations, mental health, musculoskeletal)? @ -prior EKG interpreted by me (3pts min.). @ -yes X-rays interpreted by me (1pt min.). @ -no CT interpreted by me (1pt min.). @ -yes U/S interpreted by me (1pt. min.). @ -no What testing was considered but not performed or refused? (CT, X-rays, U/S, labs)? Why? @ -none What meds were considered but not given or refused? Why? @ -none Did you discuss the management of the patient with other professionals (professionals i.e. , PA, MACHINE ROOM OPERATOR, lab, RT, psych nurse, social problems specialist, brick setter operator, teacher, evp chief exploration officer, rifle case repairer)? Give summary @ -no Was smoking cessation discussed for >3mins.? @ -no Was critical care preformed (if so, how long)? @ -no Were there social determinants of health that impacted care today? How? (Homelessness, low income, unemployed, alcoholism, drug addiction, transportation, low edu. Level, literacy, decrease access to med. care, shelter, rehab)? @ -none Was there de-escalation of care discussed even if they declined (Discuss DNR or withdrawal of care, Hospice)? DNR status @ -no What co-morbidities impacted this encounter? (DM, HTN, Smoking, COPD, CAD, Cancer, CVA, ARF, Chemo, Hep., AIDS, mental health diagnosis, sleep apnea, morbid obesity)? @ -none Was patient admitted / discharged? Hospital course, mention meds given and route, prescriptions, significant lab abnormalities, going to OR and other pertinent info. @ - 22 female to the emergency department for evaluation chest pain. Patient's chest pain is significant and severe shortness of breath. No complaints here currently but did have significant pain with deep breath. Patient is noting negative testing for chest pain here in the ER can be discharged home Discharge Undiagnosed new problem with uncertain prognosis? @ -no Drug Therapy requiring intensive monitoring for toxicity (Heparin, Nitro, Insulin, Cardizem)? @ -no Were any procedures done? @ -no Diagnosis/symptom? @ -Chest pain Acute, or Chronic, or Acute on Chronic? @ -Acute Uncomplicated (without systemic symptoms) or Complicated (systemic symptoms)? @ -Complicated Side effects of treatment? @ -no Exacerbation, Progression, or Severe Exacerbation? @ -exacerbation Poses a threat to life or bodily function? How? (Chest pain, [place], [place], pneumonia, PE, COPD, DKA, ARF, appy, cholecystitis, CVA, Diverticulitis, Homicidal, Suicidal, threat to staff... and all critical care pts) @ -yes Reevaluation #5: Differential Chest Pain: Stable Angina, Unstable Angina, STEMI, NSTEMI Aortic Dissection, Pneumothorax, Musculoskeletal, Esophageal Spasm GERD, Cholecystitis, Pancreatitis, Zoster, this is not meant to be an all-inclusive list. Chest Pain MDM - MDM 22 female to the emergency department for evaluation chest pain. Patient's chest pain is significant and severe shortness of breath. No complaints here currently but did have significant pain with deep breath. Patient is noting negative testing for chest pain here in the ER can be discharged home Disposition Clinical Impression: Chest pain Disposition: HOME SELF-CARE Condition: Good Instructions (If sedation given, give patient instructions): Chest Pain (ED) Is patient prescribed a controlled substance at d/c from ED?: No Referrals: Patrick Saab MD [Primary Care Provider] - 1-2 days Time of Disposition: 19:30
[2023-01-23 18:14] LABS: Basophils % (A) 0 %; Eosinophils # (A) 0.1 k/uL (0-0.7); Eosinophils % (A) 1 %; HCT 40.3 % (34.0-46.0); HGB 13.9 gm/dL (11.4-16.0); Lymphocytes # (A) 2.8 k/uL (1.0-4.8); Lymphocytes % (A) 30 %; MCH 32.1 pg (25.0-35.0); MCHC 34.5 g/dL (31.0-37.0); MCV 92.9 fL (80.0-100.0); Mean Platelet Volume 6.8; Monocytes # (A) 0.6 k/uL (0-1.0); Monocytes % (A) 7 %; Neutrophils # (A) 5.7 k/uL (1.3-7.7); Neutrophils % (A) 61 %; Platelet Count 409 k/uL (150-450); RBC 4.34 m/uL (3.80-5.40); RDW 11.9 % (11.5-15.5); WBC 9.2 k/uL (3.8-10.6)
[2023-01-23 18:28] LABS: INR 0.9 (<1.2); Partial Thromboplastin Time 22.5 sec (22.0-30.0); Prothrombin Time 9.7 sec (10.0-12.5)
[2023-01-23 18:30] LABS: ALT 22 U/L (4-34); AST 22 U/L (14-36); African American GFR (CKD) >90 (>60 ml/min/1.73 sqM); Albumin 3.6 g/dL (3.5-5.0); Alkaline Phosphatase 74 U/L (38-126); Anion Gap 7 mmol/L; Blood Urea Nitrogen 11 mg/dL (7-17); Calcium 9.3 mg/dL (8.4-10.2); Carbon Dioxide 29 mmol/L (22-30); Chloride 101 mmol/L (98-107); Glucose 77 mg/dL (74-99); Lipase 347 U/L (23-300); Magnesium 1.9 mg/dL (1.6-2.3); Non-African American GFR(CKD) >90 (>60 ml/min/1.73 sqM); Potassium 4.4 mmol/L (3.5-5.1); Sodium 137 mmol/L (137-145); Total Bilirubin 0.4 mg/dL (0.2-1.3); Total Protein 6.4 g/dL (6.3-8.2)
[2023-01-23 18:38] LABS: NT-Pro-B-Type Natriuretic Pept 29 pg/mL
--- NOTE | 2023-01-23 19:07 | CT ---
EXAMINATION TYPE: CT angio chest CT DLP: 355.1 mGycm, Automated exposure control for dose reduction was used. DATE OF EXAM: 01/23/2023 6:23 PM COMPARISON: None. CLINICAL INDICATION:Female, 22 years old with history of cp; sternal chest pain x 3 days. TECHNIQUE/CONTRAST: CTA scan of the thorax is performed with IV Contrast, patient injected with 65 cc mL of Isovue 370, w ith multiplanar reformats. MIP images are created and reviewed these [facility] FINDINGS: Pulmonary Artery: There is no evidence for a central filling defect within the pulmonary vasculature to suggest acute pulmonary embolism. Limited evaluation of the subsegmental branches secondary to joao us timing. The pulmonary artery is of normal size. Heart: Heart is within normal limits for size. Vasculature: No evidence of aortic aneurysm or dissection. Mediastinum: No evidence of adenopathy or mass. Airway: Central airways are patent. Lower neck: No significant findings. Soft Tissues: Unremarkable. Lungs/Pleura: No evidence of focal consolidation, pleural effusion or pneumothorax. Musculoskeletal: No acute osseous abnormality. Mild degenerative changes of the thoracic spine. Upper Abdomen: Liver appears mildly prominent measuring at least 14.5 cm in length but extends beyond the study. The gallbladder appears moderately distended and elongated, up to about 12 cm in length a nd 4.4 cm transverse. No calcified gallstones can be seen.. IMPRESSION: 1. No evidence of pulmonary embolism, or other acute chest process. 2. Moderately distended gallbladder, nonspecific. If concern for cholecystitis, ultrasound or HIDA s can could be obtained in follow-up.
[2023-01-23 21:06] VITALS: BP 102/74; PULSE 84; RESP 10
== END 2023-01-23 21:05 | disposition home or self-care (01) ==
LOC: EC 17:14
DX: R07.89 Other chest pain (principal); F41.9 Anxiety disorder, unspecified; F32.A Depression, unspecified; Z79.899 Other long term (current) drug therapy; Z88.0 Allergy status to penicillin
CPT/HCPCS: 36415; 93005; 85379; 83880; 80053; 83690; 83735; 84484; 85025; 85610; 85730; 71275; 99285; 96374; J1885; Q9967

== ENCOUNTER 2023-01-30 19:31 | Inpatient (IN) | payer MEDICAID ==
--- NOTE | 2023-01-30 19:57 | ED ---
General Adult HPI - General Source: patient, RN notes reviewed <Elma Saavedra - Last Filed: 01/30/23 19:58> - General Source: patient, RN notes reviewed, old records reviewed <Alex Burns - Last Filed: 01/31/23 04:22> - General Stated complaint: Abd Pain Time Seen by Provider: 01/30/23 19:55 - History of Present Illness Initial comments: 22-year-old female presents emergency department chief complaint of epigastric and right upper quadrant abdominal pain. She states that this has been going on for around 10 days but has been getting worse recently. She states that it is worse with eating. She reports that she has associated nausea with vomiting. She has been taking zofran for the nausea. (Elma Saavedra) Patient is a 22-year-old female presents from his apartment plenty of 10 days of abdominal pain. Was evaluated at an outside hospital and diagnosed with a large gallbladder. Is still having issues with right upper quadrant and epigastric abdominal pain with intractable nausea and vomiting. Workup started in triage as a quick note. I evaluated patient when she was placed in a room. No chest pain. No shortness of breath. No fevers. Some comfortable for the pain. No change in flatus or bowel movements. Presents for further evaluation. No history of abdominal surgeries. (Alex Burns) - Related Data Home Medications Medication Instructions Recorded Confirmed ALPRAZolam [Xanax] 0.5 mg PO TID 06/07/22 12/04/22 buPROPion XL [Wellbutrin XL] 300 mg PO DAILY 06/07/22 12/04/22 nadoloL 20 mg PO BID 12/04/22 12/04/22 Allergies Allergy/AdvReac Type Severity Reaction Status Date / Time Penicillins Allergy Rash/Hives Verified 01/23/23 17:21 Review of Systems ROS Other: All systems not noted in ROS Statement are negative. <Elma Saavedra - Last Filed: 01/30/23 19:58> ROS Other: All systems not noted in ROS Statement are negative. <Alex Burns - Last Filed: 01/31/23 04:22> ROS Statement: Those systems with pertinent positive or pertinent negative responses have been documented in the HPI. Review of Systems: CONST: Denies fever EYES: Denies blurry vision ENT: Denies nasal congestion C/V: Denies Chest pain RESP: Denies shortness of breath GI: Endorses abdominal pain : Denies dysuria SKIN: Denies rash. MSK: Denies joint pain. NEURO: Denies headache . (Alex Burns) Past Medical History Past Medical History: No Reported History Additional Past Medical History / Comment(s): SEE DR JACKSON'S H&P History of Any Multi-Drug Resistant Organisms: None Reported Past Surgical History: No Surgical Hx Reported Additional Past Surgical History / Comment(s): D&C Past Anesthesia/Blood Transfusion Reactions: No Reported Reaction Past Psychological History: Anxiety, Depression Smoking Status: Never smoker Past Alcohol Use History: Occasional Past Drug Use History: None Reported <Elma Saavedra - Last Filed: 01/30/23 19:58> General Exam <Elma Saavedra - Last Filed: 01/30/23 19:58> <Alex Burns - Last Filed: 01/31/23 04:22> - General Exam Comments Initial Comments: Visual Physical Exam Vital signs reviewed General: Well-appearing, nontoxic, no acute distress. Head: Normocephalic, atraumatic Eyes: PERRLA, EOMI ENT: Airway patent Chest: Nonlabored breathing Skin: No visual rash, normal skin tone Neuro: Alert and oriented 3 Musculoskeletal: No gross abnormalities (Elma Saavedra) General: Appears uncomfortable. HEAD: Normal with no signs of head trauma. EYES: PERRLA, EOMI, conjunctiva normal, no discharge. ENT: Hearing grossly intact, normal oropharynx. RESPIRATORY: Clear breath sounds bilaterally. No wheezes, rales, or rhonchi. C/V: Regular rate and rhythm. S1 and S2 auscultated, no edema, peripheral pulses 2+ and intact throughout ABD: Abdomen soft, nondistended. Tenderness to palpation epigastric region and right upper quadrant. No guarding. No rebound tenderness. No peritoneal signs. EXT: Normal range of motion, no obvious deformity SKIN: No rashes or lesions observed on exposed skin. NEURO: Alert and oriented x 4. (Alex Burns) Course Vital Signs 01/30/23 01/30/23 01/30/23 20:17 22:15 22:45 Temperature 99.0 F Pulse Rate 123 H 95 89 Respiratory 18 18 16 Rate Blood Pressure 138/98 114/63 105/87 O2 Sat by Pulse 99 98 98 Oximetry 01/31/23 01:54 Temperature 98.4 F Pulse Rate 78 Respiratory 16 Rate Blood Pressure 115/73 O2 Sat by Pulse 100 Oximetry Medical Decision Making <Elma Saavedra - Last Filed: 01/30/23 19:58> - Lab Data Result diagrams: 01/30/23 21:04 01/30/23 21:04 <Alex Burns - Last Filed: 01/31/23 04:22> - Medical Decision Making Quick note preformed by Elma Saavedra PA-C (Elma Saavedra) Was pt. sent in by a medical professional or institution (ARELY Virgen, WEAPONS AND TACTICS INSTRUCTOR, urgent care, hospital, or half-way...) When possible be specific @ -No Did you speak to anyone other than the patient for history (EMS, parent, family, police, friend...)? What history was obtained from this source @ -No Did you review nursing and triage notes (agree or disagree)? Why? @ -I reviewed and agree with nursing and triage notes Were old charts reviewed (outside hosp., previous admission, EMS record, old EKG, old radiological studies, urgent care reports/EKG's, half-way records)? Report findings @ -Old charts reviewed Differential Diagnosis (chest pain, altered mental status, abdominal pain women, abdominal pain men, vaginal bleeding, weakness, fever, dyspnea, syncope, headache, dizziness, GI bleed, back pain, seizure, CVA, palpatations, mental health, musculoskeletal)? @ -Differential abdominal pain women EKG interpreted by me (3pts min.). @ -None done X-rays interpreted by me (1pt min.). @ -None done CT interpreted by me (1pt min.). @ -None done U/S interpreted by me (1pt. min.). @ -Ultrasound revealed multiple gallstones in the gallbladder neck without any obvious findings of cholecystitis. What testing was considered but not performed or refused? (CT, X-rays, U/S, labs)? Why? @ -None What meds were considered but not given or refused? Why? @ -None Did you discuss the management of the patient with other professionals (professionals i.e. ARE[employer], WEAPONS AND TACTICS INSTRUCTOR, lab, RT, psych nurse, social service worker, temperature regulator pyrometer, teacher, chief operating officer, high risk case manager)? Give summary @ -Discussed with on-call surgeon Dr. Dubois who agreed with admission. He was in the emergency department and evaluated the patient at bedside. Was smoking cessation discussed for >3mins.? @ -No Was critical care preformed (if so, how long)? @ -No Were there social determinants of health that impacted care today? How? (Homelessness, low income, unemployed, alcoholism, drug addiction, transportation, low edu. Level, literacy, decrease access to med. care, care home, rehab)? @ -No Was there de-escalation of care discussed even if they declined (Discuss DNR or withdrawal of care, Hospice)? DNR status @ -No What co-morbidities impacted this encounter? (DM, HTN, Smoking, COPD, CAD, Cancer, CVA, ARF, Chemo, Hep., AIDS, mental health diagnosis, sleep apnea, morbid obesity)? @ -None Was patient admitted / discharged? Hospital course, mention meds given and route, prescriptions, significant lab abnormalities, going to OR and other pertinent info. @ -Based on the patient's presentation and physical exam, presents with gallbladder pain. Workup started as a quick note. Labs are all within acceptable limits. Gallbladder ultrasound reveals no evidence of cholecystitis but multiple gallstones in the gallbladder neck. Vital signs of any central limits. Despite receiving IV analgesia medications, IV fluids, IV antiemetics, patient is still having nausea, vomiting, as well as pain. Patient be admitted to the hospital. I spoke with the on-call surgeon Dr. Dubois who accepted the patient. Patient was in agreement this plan. Patient made nothing by mouth. Undiagnosed new problem with uncertain prognosis? @ -No Drug Therapy requiring intensive monitoring for toxicity (Heparin, Nitro, Insulin, Cardizem)? @ -No Were any procedures done? @ -No Diagnosis/symptom? @ -Cholelithiasis, biliary colic, intractable abdominal pain, intractable nausea and vomiting Acute, or Chronic, or Acute on Chronic? @ -Acute Uncomplicated (without systemic symptoms) or Complicated (systemic symptoms)? @ -Complicated Side effects of treatment? @ -No Exacerbation, Progression, or Severe Exacerbation? @ -No Poses a threat to life or bodily function? How? (Chest pain, [place], [place], pneumonia, PE, COPD, DKA, ARF, appy, cholecystitis, CVA, Diverticulitis, Homicidal, Suicidal, threat to staff... and all critical care pts) @ -Possibly, yes (Alex Burns) - Lab Data Lab Results 01/30/23 01/30/23 01/30/23 Range/Units 21:04 21:04 21:04 WBC 6.3 (3.8-10.6) k/uL RBC 4.26 (3.80-5.40) m/uL Hgb 13.8 (11.4-16.0) gm/dL Hct 39.7 (34.0-46.0) % MCV 93.0 (80.0-100.0) fL MCH 32.3 (25.0-35.0) pg MCHC 34.7 (31.0-37.0) g/dL RDW 11.9 (11.5-15.5) % Plt Count 299 (150-450) k/uL MPV 7.0 Neutrophils % 58 % Lymphocytes % 34 % Monocytes % 5 % Eosinophils % 1 % Basophils % 0 % Neutrophils # 3.7 (1.3-7.7) k/uL Lymphocytes # 2.2 (1.0-4.8) k/uL Monocytes # 0.3 (0-1.0) k/uL Eosinophils # 0.1 (0-0.7) k/uL Basophils # 0.0 (0-0.2) k/uL Sodium 139 (137-145) mmol/L Potassium 4.2 (3.5-5.1) mmol/L Chloride 103 (98-107) mmol/L Carbon Dioxide 26 (22-30) mmol/L Anion Gap 10 mmol/L BUN 8 (7-17) mg/dL Creatinine 0.58 (0.52-1.04) mg/dL Est GFR (CKD-EPI)AfAm >90 (>60 ml/min/1.73 sqM) Est GFR (CKD-EPI)NonAf >90 (>60 ml/min/1.73 sqM) Glucose 94 (74-99) mg/dL Plasma Lactic Acid [place] 1.0 (0.7-2.0) mmol/L Calcium 9.1 (8.4-10.2) mg/dL Total Bilirubin 0.3 (0.2-1.3) mg/dL AST 22 (14-36) U/L ALT 27 (4-34) U/L Alkaline Phosphatase 79 (38-126) U/L Total Protein 6.8 (6.3-8.2) g/dL Albumin 4.0 (3.5-5.0) g/dL Amylase 43 (30-110) U/L Lipase 235 (23-300) U/L Urine Color Urine Appearance (Clear) Urine pH (5.0-8.0) Ur Specific David (1.001-1.035) Urine Protein (Negative) Urine Glucose (UA) (Negative) Urine Ketones (Negative) Urine Blood (Negative) Urine Nitrite (Negative) Urine Bilirubin (Negative) Urine Urobilinogen (<2.0) mg/dL Ur Leukocyte Esterase (Negative) Urine RBC (0-5) /hpf Urine WBC (0-5) /hpf Ur Squamous Epith Cells (0-4) /hpf Amorphous Sediment (None) /hpf Urine Bacteria (None) /hpf Urine Mucus (None) /hpf Urine HCG, Qual (Not Detectd) 01/30/23 01/30/23 Range/Units 21:04 21:04 WBC (3.8-10.6) k/uL RBC (3.80-5.40) m/uL Hgb (11.4-16.0) gm/dL Hct (34.0-46.0) % MCV (80.0-100.0) fL MCH (25.0-35.0) pg MCHC (31.0-37.0) g/dL RDW (11.5-15.5) % Plt Count (150-450) k/uL MPV Neutrophils % % Lymphocytes % % Monocytes % % Eosinophils % % Basophils % % Neutrophils # (1.3-7.7) k/uL Lymphocytes # (1.0-4.8) k/uL Monocytes # (0-1.0) k/uL Eosinophils # (0-0.7) k/uL Basophils # (0-0.2) k/uL Sodium (137-145) mmol/L Potassium (3.5-5.1) mmol/L Chloride (98-107) mmol/L Carbon Dioxide (22-30) mmol/L Anion Gap mmol/L BUN (7-17) mg/dL Creatinine (0.52-1.04) mg/dL Est GFR (CKD-EPI)AfAm (>60 ml/min/1.73 sqM) Est GFR (CKD-EPI)NonAf (>60 ml/min/1.73 sqM) Glucose (74-99) mg/dL Plasma Lactic Acid [place] (0.7-2.0) mmol/L Calcium (8.4-10.2) mg/dL Total Bilirubin (0.2-1.3) mg/dL AST (14-36) U/L ALT (4-34) U/L Alkaline Phosphatase (38-126) U/L Total Protein (6.3-8.2) g/dL Albumin (3.5-5.0) g/dL Amylase (30-110) U/L Lipase (23-300) U/L Urine Color Colorless Urine Appearance Cloudy H (Clear) Urine pH 7.5 (5.0-8.0) Ur Specific David 1.010 (1.001-1.035) Urine Protein Negative (Negative) Urine Glucose (UA) Negative (Negative) Urine Ketones Negative (Negative) Urine Blood Moderate H (Negative) Urine Nitrite Negative (Negative) Urine Bilirubin Negative (Negative) Urine Urobilinogen <2.0 (<2.0) mg/dL Ur Leukocyte Esterase Negative (Negative) Urine RBC 2 (0-5) /hpf Urine WBC 3 (0-5) /hpf Ur Squamous Epith Cells 6 H (0-4) /hpf Amorphous Sediment Rare H (None) /hpf Urine Bacteria Occasional H (None) /hpf Urine Mucus Rare H (None) /hpf Urine HCG, Qual Not Detected (Not Detectd) Disposition <Elma Saavedra - Last Filed: 01/30/23 19:58> Time of Disposition: 00:45 <Alex Burns - Last Filed: 01/31/23 04:22> Clinical Impression: Biliary colic, Intractable abdominal pain, Nausea and vomiting, Cholelithiases Disposition: ADMITTED IP TO THIS [facility] Condition: Stable
--- NOTE | 2023-01-30 21:10 | US ---
EXAMINATION TYPE: US gallbladder DATE OF EXAM: 01/30/2023 COMPARISON: CTA: 01/23/23 CLINICAL INDICATION: Female, 22 years old with history of RUQ/epigastric pain; RUQ and epigastric josé n. TECHNIQUE: Multiple sonographic images of the right upper quadrant are obtained. FINDINGS: EXAM MEASUREMENTS: Liver Length: 13.2 cm Gallbladder Wall: 0.24 cm CBD: 0.44 cm Right Kidney: 10.4 x 5.5 x 5.9 cm Pancreas: Obscured by bowel gas Liver: wnl Gallbladder: Hydropic with multiple gallstones in neck Evidence for sonographic Gomes's sign: No CBD: wnl Right Kidney: wnl IMPRESSION: Cholelithiasis, but negative for cholecystitis.
[2023-01-30 21:30] LABS: Basophils % (A) 0 %; Eosinophils # (A) 0.1 k/uL (0-0.7); Eosinophils % (A) 1 %; HCT 39.7 % (34.0-46.0); HGB 13.8 gm/dL (11.4-16.0); Lymphocytes # (A) 2.2 k/uL (1.0-4.8); Lymphocytes % (A) 34 %; MCH 32.3 pg (25.0-35.0); MCHC 34.7 g/dL (31.0-37.0); Monocytes # (A) 0.3 k/uL (0-1.0); Monocytes % (A) 5 %; Neutrophils # (A) 3.7 k/uL (1.3-7.7); Neutrophils % (A) 58 %; Platelet Count 299 k/uL (150-450); RBC 4.26 m/uL (3.80-5.40); RDW 11.9 % (11.5-15.5); WBC 6.3 k/uL (3.8-10.6)
[2023-01-30 21:50] LABS: ALT 27 U/L (4-34); AST 22 U/L (14-36); African American GFR (CKD) >90 (>60 ml/min/1.73 sqM); Alkaline Phosphatase 79 U/L (38-126); Amylase 43 U/L (30-110); Anion Gap 10 mmol/L; Blood Urea Nitrogen 8 mg/dL (7-17); Calcium 9.1 mg/dL (8.4-10.2); Carbon Dioxide 26 mmol/L (22-30); Chloride 103 mmol/L (98-107); Glucose 94 mg/dL (74-99); Lipase 235 U/L (23-300); Non-African American GFR(CKD) >90 (>60 ml/min/1.73 sqM); Potassium 4.2 mmol/L (3.5-5.1); Sodium 139 mmol/L (137-145); Total Bilirubin 0.3 mg/dL (0.2-1.3); Total Protein 6.8 g/dL (6.3-8.2)
[2023-01-30 21:58] LABS: Amorphous Sediment,Urine Rare /hpf; Appearance,Urine Cloudy (Clear); Bacteria,Urine Occasional /hpf; Bilirubin,Urine Negative (Negative); Blood,Urine Moderate (Negative); Color,Urine Colorless; Glucose,Urine (UA) Negative (Negative); Ketones,Urine Negative (Negative); Leukocyte Esterase,Urine Negative (Negative); Mucus,Urine Rare /hpf; Nitrite,Urine Negative (Negative); PH, Urine 7.5 (5.0-8.0); Protein,Urine Negative (Negative); RBC,Urine 2 /hpf (0-5); Squamous Epithelial Cell,Urine 6 /hpf (0-4); Urobilinogen,Urine <2.0 mg/dL (<2.0); WBC,Urine 3 /hpf (0-5)
[2023-01-30] MEDS ORDERED: MORPHINE SULFATE 4 MG/ML SYRINGE IVP STA (22:03)
[2023-01-30] MEDS ORDERED: SODIUM CHLORIDE 0.9% 1,000 ML IV STA (22:03)
[2023-01-30] MEDS ORDERED: KETOROLAC 15 MG/ML 1 ML VIAL IVP STA (22:03)
[2023-01-30] MEDS ORDERED: METOCLOPRAMIDE 5 MG/ML 2 ML VIAL IVP STA (22:03)
[2023-01-30] MEDS ORDERED: PANTOPRAZOLE 40 MG/10 ML VIAL IVP STA (22:03)
--- NOTE | 2023-01-30 22:24 | XR ---
EXAMINATION TYPE: XR KUB DATE OF EXAM: 01/30/2023 9:28 PM CLINICAL HISTORY: Pain TECHNIQUE: 2 upright views were obtained COMPARISON: None. FINDINGS: Scattered gas is seen in non-distended small bowel loops. Gas and fecal material is seen in non-diste nded colon. Excessive volume of colonic stool noted. There is no visceromegaly, pneumoperitoneum, or abnormal calcification. The lung bases are clear and the osseous structures are intact. IMPRESSION: No acute radiographic process.
[2023-01-31] MEDS ORDERED: traMADol 50 MG TAB PO PRN (01:02)
[2023-01-31] MEDS ORDERED: ACETAMINOPHEN TAB 325 MG TAB PO PRN (01:02)
[2023-01-31] MEDS ORDERED: HYDROmorphone 1 MG/ML 1 ML SYRINGE IVP PRN (01:02)
[2023-01-31] MEDS ORDERED: NALOXONE 0.4 MG/ML 1 ML VIAL IV PRN (02:46)
[2023-01-31] MEDS: D5-0.45% NACL WITH KCL 20MEQ/L 1,000 ML IV SCH ×3 (02:54→18:36)
[2023-01-31] MEDS ORDERED: SODIUM CHLORIDE 0.9% 1,000 ML IV SCH (03:00)
[2023-01-31] MEDS: HYDROmorphone 0.5 MG/0.5 ML SYRINGE IVP PRN (07:30)
--- NOTE | 2023-01-31 07:35 | P.GSHP ---
History of Present Illness H&P Date: 01/31/23 Chief Complaint: Right upper quadrant pain 22-year-old female has had ongoing complaints of right upper quadrant pain for the last few weeks. Gradually worsening. Associated with nausea and vomiting. Pain radiates to the back. Patient had a CAT scan at a previous visit showing an enlarged gallbladder. Ultrasound today shows gallstones and mild gallbladder distention. Patient's labs are okay. Still having pain despite analgesics. Denies fevers. No change in the color of her skin urine or stool. - Review of Systems Comment: The patient denies any acute changes in vision or hearing, no dysphagia or odynophagia, no chest pain or shortness of breath, no dysuria or hematuria, no headache, no runny nose, no rectal bleeding or melena, no unexplained weight loss Past Medical History Past Medical History: No Reported History Additional Past Medical History / Comment(s): SEE DR JACKSON'S H&P History of Any Multi-Drug Resistant Organisms: None Reported Past Surgical History: No Surgical Hx Reported Additional Past Surgical History / Comment(s): D&C Past Anesthesia/Blood Transfusion Reactions: No Reported Reaction Past Psychological History: Anxiety, Depression Smoking Status: Never smoker Past Alcohol Use History: Occasional Past Drug Use History: None Reported Medications and Allergies Home Medications Medication Instructions Recorded Confirmed Type ALPRAZolam [Xanax] 0.5 mg PO TID 06/07/22 12/04/22 History buPROPion XL [Wellbutrin XL] 300 mg PO DAILY 06/07/22 12/04/22 History nadoloL 20 mg PO BID 12/04/22 12/04/22 History Allergies Allergy/AdvReac Type Severity Reaction Status Date / Time Penicillins Allergy Rash/Hives Verified 01/23/23 17:21 Surgical - Exam Vital Signs Temp Pulse Resp BP Pulse Ox 99.0 F 123 H 18 138/98 99 01/30/23 20:17 01/30/23 20:17 01/30/23 20:17 01/30/23 20:17 01/30/23 20:17 Physical exam: General: Well-developed, well-nourished HEENT: Normocephalic, sclerae nonicteric Abdomen: Right upper quadrant tenderness, nondistended Extremities: No edema Neuro: Alert and oriented Results - Labs 01/30/23 21:04 01/30/23 21:04 Abnormal Lab Results - Last 24 Hours (Table) 01/30/23 Range/Units 21:04 Urine Appearance Cloudy H (Clear) Urine Blood Moderate H (Negative) Ur Squamous Epith Cells 6 H (0-4) /hpf Amorphous Sediment Rare H (None) /hpf Urine Bacteria Occasional H (None) /hpf Urine Mucus Rare H (None) /hpf Diabetes panel 01/30/23 Range/Units 21:04 Sodium 139 (137-145) mmol/L Potassium 4.2 (3.5-5.1) mmol/L Chloride 103 (98-107) mmol/L Carbon Dioxide 26 (22-30) mmol/L BUN 8 (7-17) mg/dL Creatinine 0.58 (0.52-1.04) mg/dL Glucose 94 (74-99) mg/dL Calcium 9.1 (8.4-10.2) mg/dL AST 22 (14-36) U/L ALT 27 (4-34) U/L Alkaline Phosphatase 79 (38-126) U/L Total Protein 6.8 (6.3-8.2) g/dL Albumin 4.0 (3.5-5.0) g/dL Calcium panel 01/30/23 Range/Units 21:04 Calcium 9.1 (8.4-10.2) mg/dL Albumin 4.0 (3.5-5.0) g/dL Pituitary panel 01/30/23 Range/Units 21:04 Sodium 139 (137-145) mmol/L Potassium 4.2 (3.5-5.1) mmol/L Chloride 103 (98-107) mmol/L Carbon Dioxide 26 (22-30) mmol/L BUN 8 (7-17) mg/dL Creatinine 0.58 (0.52-1.04) mg/dL Glucose 94 (74-99) mg/dL Calcium 9.1 (8.4-10.2) mg/dL Adrenal panel 01/30/23 Range/Units 21:04 Sodium 139 (137-145) mmol/L Potassium 4.2 (3.5-5.1) mmol/L Chloride 103 (98-107) mmol/L Carbon Dioxide 26 (22-30) mmol/L BUN 8 (7-17) mg/dL Creatinine 0.58 (0.52-1.04) mg/dL Glucose 94 (74-99) mg/dL Calcium 9.1 (8.4-10.2) mg/dL Total Bilirubin 0.3 (0.2-1.3) mg/dL AST 22 (14-36) U/L ALT 27 (4-34) U/L Alkaline Phosphatase 79 (38-126) U/L Total Protein 6.8 (6.3-8.2) g/dL Albumin 4.0 (3.5-5.0) g/dL Assessment and Plan (1) Acute cholecystitis due to biliary calculus Narrative/Plan: 22-year-old female with acute calculus cholecystitis. We'll proceed with laparoscopic cholecystectomy, possible open. Risks of bleeding, infection, bile leak, bile duct injury, retained common bile duct stone, trocar injury, conversion to an open procedure, hernia, anesthesia related complications were reviewed. The patient understands and wishes to proceed. Current Visit: Yes Status: Acute Code(s): K80.00 - CALCULUS OF GALLBLADDER W ACUTE CHOLECYST W/O OBSTRUCTION SNOMED Code(s): 96343926182681
[2023-01-31] MEDS: HEPARIN SODIUM,PORCINE 5,000 UNIT/ML 1 ML VIAL SQ SCH ×2 (09:22→18:36)
[2023-01-31] MEDS: PANTOPRAZOLE 40 MG/10 ML VIAL IV SCH (09:24)
[2023-01-31 11:10] LABS: Basophils % (A) 0 %; Eosinophils % (A) 1 %; HCT 39.6 % (34.0-46.0); HGB 13.4 gm/dL (11.4-16.0); Lymphocytes # (A) 1.4 k/uL (1.0-4.8); Lymphocytes % (A) 21 %; MCH 32.1 pg (25.0-35.0); MCHC 33.9 g/dL (31.0-37.0); MCV 94.6 fL (80.0-100.0); Monocytes # (A) 0.4 k/uL (0-1.0); Monocytes % (A) 6 %; Neutrophils # (A) 4.8 k/uL (1.3-7.7); Neutrophils % (A) 71 %; Platelet Count 273 k/uL (150-450); RBC 4.19 m/uL (3.80-5.40); RDW 12.1 % (11.5-15.5); WBC 6.8 k/uL (3.8-10.6)
[2023-01-31 11:23] LABS: ALT 25 U/L (4-34); AST 23 U/L (14-36); African American GFR (CKD) >90 (>60 ml/min/1.73 sqM); Albumin 3.3 g/dL (3.5-5.0); Alkaline Phosphatase 75 U/L (38-126); Anion Gap 5 mmol/L; Blood Urea Nitrogen 5 mg/dL (7-17); Calcium 8.7 mg/dL (8.4-10.2); Carbon Dioxide 28 mmol/L (22-30); Chloride 105 mmol/L (98-107); Glucose 111 mg/dL (74-99); Non-African American GFR(CKD) >90 (>60 ml/min/1.73 sqM); Potassium 4.1 mmol/L (3.5-5.1); Sodium 138 mmol/L (137-145); Total Bilirubin 0.3 mg/dL (0.2-1.3); Total Protein 6.1 g/dL (6.3-8.2)
[2023-01-31] MEDS ORDERED: ONDANSETRON 4 MG/2 ML VIAL ONE (13:41)
[2023-01-31] MEDS ORDERED: diphenhydrAMINE 50 MG/ML 1 ML VIAL ONE (13:41)
[2023-01-31] MEDS ORDERED: LACTATED RINGERS 1,000 ML IV ONE (13:45)
[2023-01-31] MEDS ORDERED: DEXAMETHASONE SOD PHOSPHATE 4 MG/ML 1 ML VIAL IVP ONE (13:55)
[2023-01-31] MEDS ORDERED: FAMOTIDINE 20 MG/2 ML VIAL IVP ONE (13:55)
[2023-01-31] MEDS ORDERED: diphenhydrAMINE 50 MG/ML 1 ML VIAL IVP ONE (13:55)
[2023-01-31] MEDS ORDERED: ONDANSETRON 4 MG/2 ML VIAL IVP ONE (13:55)
[2023-01-31] MEDS ORDERED: LIDOCAINE 1% INJ 10MG/ML (20 ML MDV) ONE (14:33)
[2023-01-31] MEDS ORDERED: NEOSTIGMINE 1 MG/ML 10 ML VIAL ONE (14:33)
[2023-01-31] MEDS ORDERED: GLYCOPYRROLATE 0.2 MG/ML 2 ML VIAL ONE (14:33)
[2023-01-31] MEDS ORDERED: MIDAZOLAM 2 MG/2 ML VIAL ONE (14:33)
[2023-01-31] MEDS ORDERED: SUCCINYLCHOLINE CHLORIDE 200 MG/10 ML VIAL IV ONE (14:33)
[2023-01-31] MEDS ORDERED: PROPOFOL 10 MG/ML 20 ML VIAL IV ONE (14:33)
[2023-01-31] MEDS ORDERED: fentaNYL (PF) 50 MCG/ML 2 ML AMP ONE (14:33)
[2023-01-31] MEDS ORDERED: ROCURONIUM 10 MG/ML (5 ML VIAL) IV ONE (14:33)
[2023-01-31] MEDS ORDERED: SODIUM CHLORIDE 0.9% 50 ML with ceFAZolin 2,000 MG IV ONE ×2 (14:38)
[2023-01-31] MEDS ORDERED: BUPIVACAINE (PF) 0.25% 30 ML VIAL SQ ONE (15:05)
--- NOTE | 2023-01-31 16:00 | P.OP ---
Date of Procedure: 01/31/23 Procedure(s) Performed: PREOPERATIVE DIAGNOSIS: Acute cholecystitis with hydrops POSTOPERATIVE DIAGNOSIS: Same PROCEDURE: Laparoscopic cholecystectomy SURGEON: Sherly EBL: Minimal see anesthesia record ANESTHESIA: Gen. COMPLICATIONS: None OPERATIVE PROCEDURE: The patient was brought and placed on the operating room table in the supine position. The patient was placed under general anesthesia at that time. The abdomen was prepped and draped in the usual sterile fashion. A small vertical infraumbilical incision was made. The fascia was grasped with the Pietro forceps. The fascia was retracted anteriorly. The Veress needle was advanced into the peritoneal cavity. The saline drop test was normal. Insufflation took place up to 15 mmHg. A 5 mm optical trocar was advanced and the peritoneal cavity. 2 additional 5 mm trochars were placed in the right upper quadrant under direct visualization. A 12 mm trocar was advanced into the epigastric incision site. The gallbladder was acutely inflamed. It was distended and tense. In order to grasp the gallbladder a small opening in the fundus was made. Clear fluid was evacuated. The gallbladder was retracted superiorly and laterally. The peritoneum overlying the infundibulum was bluntly dissected. The patient's cystic duct was visualized. We could see there was a stone impacted in the distal infundibulum. The junction between the cystic duct common and hepatic duct was identified. The critical view of safety was achieved after blunt dissection. The cystic duct was then divided after placement of 3 12 mm clips on the patient's side and one on the specimen side. The cystic artery was identified and clipped as well. A small vessel was seen along the gallbladder fossa and clipped as well. The gallbladder was then removed from the liver bed using electrocautery. The gallbladder was then removed from the epigastric trocar site with an Endo Catch bag. The gallbladder fossa was irrigated with saline. There was no evidence of any bleeding or biliary drainage seen. The fascia at the 12 millimeter site was closed using a Darell-[place] 0 Vicryl stitch. The trochars were then removed. The skin at all 4 sites was closed using a 4-0 Monocryl stitch. Skin glue was utilized on the incision sites. At the end of this procedure the sponge and needle counts were correct. DISPOSITION: Stable to the recovery room
[2023-01-31] MEDS ORDERED: HYDROmorphone 0.5 MG/0.5 ML SYRINGE IVP ONE ×2 (16:21→16:35)
[2023-01-31] MEDS ORDERED: KETOROLAC 15 MG/ML 1 ML VIAL IVP ONE (16:22)
[2023-01-31] MEDS: HYDROcodone/APAP 5-325MG 1 EACH TAB PO PRN ×2 (17:32→22:11)
[2023-02-01] MEDS: HYDROmorphone 0.5 MG/0.5 ML SYRINGE IVP PRN ×2 (00:01→09:03)
[2023-02-01 08:36] VITALS: BP 101/66; PULSE 82; RESP 17; TEMP 97.6
[2023-02-01] MEDS: D5-0.45% NACL WITH KCL 20MEQ/L 1,000 ML IV SCH ×2 (09:02)
[2023-02-01] MEDS: HEPARIN SODIUM,PORCINE 5,000 UNIT/ML 1 ML VIAL SQ SCH ×2 (09:03)
[2023-02-01] MEDS: PANTOPRAZOLE 40 MG/10 ML VIAL IV SCH (09:03)
[2023-02-01] MEDS: HYDROcodone/APAP 5-325MG 1 EACH TAB PO PRN (13:22)
== END 2023-02-01 13:31 | disposition home or self-care (01) | DRG 418 ==
LOC: EC 19:31 → 4SSUR 01-31 02:47
PROVIDERS: ADMIT Surgery; ATTEND Surgery
PROC: 0FT44ZZ Resection of Gallbladder, Percutaneous Endoscopic Approach (ICD-10-PCS; principal; 2023-01-31 07:30)
DX: K80.42 Calculus of bile duct with acute cholecystitis without obstruction (principal); K82.1 Hydrops of gallbladder; F41.9 Anxiety disorder, unspecified; F32.A Depression, unspecified; Z28.21 Immunization not carried out because of patient refusal; Z88.0 Allergy status to penicillin; Z79.899 Other long term (current) drug therapy
CPT/HCPCS: 36415; 74018; 76705; 80053; 81001; 81025; 82150; 83605; 83690; 85025; 96361; 96374; 96375; 96376; 99285

== ENCOUNTER 2023-07-21 13:01 | Emergency (ER) | payer MEDICAID ==
--- NOTE | 2023-07-21 13:18 | ED ---
General Adult HPI - General Source: patient, RN notes reviewed Mode of arrival: ambulatory Limitations: no limitations <Natasha Ivy - Last Filed: 07/21/23 13:17> - General Source: RN notes reviewed, old records reviewed Mode of arrival: ambulatory Limitations: no limitations - History of Present Illness -: days(s) Radiation: non-radiation Severity scale (1-10): 0 Consistency: now resolved Improves with: none Worsens with: none Associated Symptoms: denies other symptoms Treatments Prior to Arrival: none <[place] - Last Filed: 07/29/23 14:50> - General Stated complaint: Increased heart rate, hand tremors Time Seen by Provider: 07/21/23 13:17 - History of Present Illness Initial comments: Quick note: 23-year-old female presented to the ER with a chief complaint of tachycardia, sweats and tremors. She reports this has been going on for approximately 1 week. Patient states her pharmacist was concerned of Neuroleptic malignant syndrome as she is taking Wellbutrin, Zoloft and recently started olanzapine approximately 2 weeks ago. Patient is also taking a beta- miesha as she has POTS. (Natasha Ivy) This 23-year-old female to the ER for evaluation of elevated heart rate tremors symptoms for a week now. Patient concern for tachycardia as well as neuroleptic malignant syndrome. Patient was sent to the ER by her pharmacist due to symptoms that she called with, patient deniesanysymptomsoffever no current sweating able to move all extremities without difficulty, no rigidity no tightness of any limbs or digits, patient has no spontaneous uncontrolled mo vements ([place]) - Related Data Home Medications Medication Instructions Recorded Confirmed ALPRAZolam [Xanax] 0.5 mg PO TID 06/07/22 01/31/23 buPROPion XL [Wellbutrin XL] 300 mg PO DAILY 06/07/22 01/31/23 nadoloL 20 mg PO BID 12/04/22 01/31/23 Sertraline HCl [Zoloft] 50 mg PO DAILY 01/31/23 01/31/23 Previous Rx's Medication Instructions Recorded HYDROcodone/APAP 5-325MG [[place] 1 tab PO Q6HR PRN 3 Days #6 tab 01/31/23 5-325] Allergies Allergy/AdvReac Type Severity Reaction Status Date / Time Penicillins Allergy Rash/Hives Verified 07/21/23 14:04 Review of Systems ROS Other: All systems not noted in ROS Statement are negative. <Natasha Ivy - Last Filed: 07/21/23 13:17> ROS Other: All systems not noted in ROS Statement are negative. <[place] - Last Filed: 07/29/23 14:50> ROS Statement: Those systems with pertinent positive or pertinent negative responses have been documented in the HPI. Past Medical History Past Medical History: No Reported History Additional Past Medical History / Comment(s): tachycardia History of Any Multi-Drug Resistant Organisms: None Reported Past Surgical History: No Surgical Hx Reported Additional Past Surgical History / Comment(s): D&C Past Anesthesia/Blood Transfusion Reactions: No Reported Reaction Past Psychological History: Anxiety, Depression Smoking Status: Never smoker Past Alcohol Use History: Occasional Past Drug Use History: None Reported <Natasha Ivy - Last Filed: 07/21/23 13:17> General Exam <WilliamsNatasha encarnacion - Last Filed: 07/21/23 13:17> General appearance: alert, in no apparent distress, anxious Head exam: Present: atraumatic, normocephalic, normal inspection Eye exam: Present: normal appearance, PERRL, EOMI. Absent: scleral icterus, conjunctival injection, periorbital swelling ENT exam: Present: normal exam, mucous membranes moist Neck exam: Present: normal inspection. Absent: tenderness, meningismus, lymphadenopathy Respiratory exam: Present: normal lung sounds bilaterally. Absent: respiratory distress, wheezes, rales, rhonchi, stridor Cardiovascular Exam: Present: regular rate, normal rhythm, normal heart sounds. Absent: systolic murmur, diastolic murmur, rubs, gallop, clicks GI/Abdominal exam: Present: soft, normal bowel sounds. Absent: distended, tenderness, guarding, rebound, rigid Extremities exam: Present: normal inspection, full ROM, normal capillary refill. Absent: tenderness, pedal edema, joint swelling, calf tenderness Back exam: Present: normal inspection Neurological exam: Present: alert, oriented X3, CN II-XII intact Psychiatric exam: Present: normal affect, normal mood Skin exam: Present: warm, dry, intact, normal color. Absent: rash <TatianaSouth Reed - Last Filed: 07/29/23 14:50> - General Exam Comments Initial Comments: Visual Physical Exam Vital signs reviewed General: Well-appearing, nontoxic, no acute distress. Head: Normocephalic, atraumatic Eyes: PERRLA, EOMI ENT: Airway patent Chest: Nonlabored breathing Skin: No visual rash, normal skin tone Neuro: Alert and oriented 3 Musculoskeletal: No gross abnormalities (Natasha Ivy) Course <TatianaSouth Derek - Last Filed: 07/29/23 14:50> Vital Signs 07/21/23 07/21/23 14:00 17:56 Temperature 99.1 F 99.1 F Pulse Rate 94 81 Respiratory 16 18 Rate Blood Pressure 103/73 109/75 O2 Sat by Pulse 98 99 Oximetry - Reevaluation(s) Reevaluation #1: Records reviewed ([place]) Reevaluation #2: Patient symptoms improved ([place]) Reevaluation #3: Patient informed of results questions answered ([place]) Reevaluation #4: Was pt. sent in by a medical professional or institution (, PA, TRANSACTION PROCESSOR, urgent care, hospital, or fdc...) When possible be specific @ -no Did you speak to anyone other than the patient for history (EMS, parent, family, police, friend...)? What history was obtained from this source @ -no Did you review nursing and triage notes (agree or disagree)? Why? @ -agree Are old charts reviewed (outside hosp., previous admission, EMS record, old EKG, old radiological studies, urgent care reports/EKG's, fdc records)? Report findings @ -yes Differential Diagnosis (chest pain, altered mental status, abdominal pain women, abdominal pain men, vaginal bleeding, weakness, fever, dyspnea, syncope, headache, dizziness, GI bleed, back pain, seizure, CVA, palpatations, mental health, musculoskeletal)? @ -prior EKG interpreted by me (3pts min.). @ -yes X-rays interpreted by me (1pt min.). @ -no CT interpreted by me (1pt min.). @ -no U/S interpreted by me (1pt. min.). @ -no What testing was considered but not performed or refused? (CT, X-rays, U/S, labs)? Why? @ -none What meds were considered but not given or refused? Why? @ -none Did you discuss the management of the patient with other professionals (professionals i.e. , PA, TRANSACTION PROCESSOR, lab, RT, psych nurse, social service manager, saw tailer, teacher, sanitation officer, pillowcase sewer)? Give summary @ -no Was smoking cessation discussed for >3mins.? @ -no Was critical care preformed (if so, how long)? @ -no Were there social determinants of health that impacted care today? How? (Homelessness, low income, unemployed, alcoholism, drug addiction, transportation, low edu. Level, literacy, decrease access to med. care, care home, rehab)? @ -none Was there de-escalation of care discussed even if they declined (Discuss DNR or withdrawal of care, Hospice)? DNR status @ -no What co-morbidities impacted this encounter? (DM, HTN, Smoking, COPD, CAD, Cancer, CVA, ARF, Chemo, Hep., AIDS, mental health diagnosis, sleep apnea, morbid obesity)? @ -none Was patient admitted / discharged? Hospital course, mention meds given and route, prescriptions, significant lab abnormalities, going to OR and other pertinent info. @ - 23 female for increased heart rate, at this point in the ER visit feels well normal EKG normal affect and can be discharged home Discharge Undiagnosed new problem with uncertain prognosis? @ -no Drug Therapy requiring intensive monitoring for toxicity (Heparin, Nitro, Insulin, Cardizem)? @ -no Were any procedures done? @ -no Diagnosis/symptom? @ -Normal findings normal EKG concerning arrhythmia Acute, or Chronic, or Acute on Chronic? @ -Acute Uncomplicated (without systemic symptoms) or Complicated (systemic symptoms)? @ -Complicated Side effects of treatment? @ -no Exacerbation, Progression, or Severe Exacerbation? @ -exacerbation Poses a threat to life or bodily function? How? (Chest pain, [place], PR, pneumonia, PE, COPD, DKA, ARF, appy, cholecystitis, CVA, Diverticulitis, Homicidal, Suicidal, threat to staff... and all critical care pts) @ -yes with arrhythmia ([place]) Reevaluation #5: Differential Palpitations Ventricular arrhythmias, atrial arrhythmias, myocardial infarction, anemia, thyrotoxicosis, electrolyte imbalance, hypokalemia, pulmonary embolism, pulmonary disease, drugs, alcohol, anxiety, stress.... This is not meant to be an all-inclusive list. ([place]) EKG Findings - EKG Comments: EKG Findings:: EKG is sinus 87 DC 163 QRS 86 QTc 398 - EKG Results: EKG: interpreted by ERMD <[place] - Last Filed: 07/29/23 14:50> Medical Decision Making <Natasha Ivy - Last Filed: 07/21/23 13:17> - Lab Data Result diagrams: 07/21/23 15:35 07/21/23 15:35 - EKG Data -: EKG Interpreted by Me <[place] - Last Filed: 07/29/23 14:50> - Medical Decision Making I performed the quick note portion of this chart. Electronically signed by Natasha Ivy PA-C (Natasha Ivy) 23 female for increased heart rate, at this point in the ER visit feels well normal EKG normal affect and can be discharged home ([place]) - Lab Data Lab Results 07/21/23 07/21/23 Range/Units 15:35 15:35 WBC 6.9 (3.8-10.6) k/uL RBC 4.33 (3.80-5.40) m/uL Hgb 13.5 (11.4-16.0) gm/dL Hct 41.4 (34.0-46.0) % MCV 95.5 (80.0-100.0) fL MCH 31.1 (25.0-35.0) pg MCHC 32.6 (31.0-37.0) g/dL RDW 11.9 (11.5-15.5) % Plt Count 417 (150-450) k/uL MPV 7.1 Neutrophils % 60 % Lymphocytes % 31 % Monocytes % 6 % Eosinophils % 1 % Basophils % 0 % Neutrophils # 4.2 (1.3-7.7) k/uL Lymphocytes # 2.1 (1.0-4.8) k/uL Monocytes # 0.5 (0-1.0) k/uL Eosinophils # 0.1 (0-0.7) k/uL Basophils # 0.0 (0-0.2) k/uL Sodium 139 (137-145) mmol/L Potassium 4.0 (3.5-5.1) mmol/L Chloride 108 H (98-107) mmol/L Carbon Dioxide 23 (22-30) mmol/L Anion Gap 8 mmol/L BUN 11 (7-17) mg/dL Creatinine 0.61 (0.52-1.04) mg/dL Est GFR (CKD-EPI)AfAm >90 (>60 ml/min/1.73 sqM) Est GFR (CKD-EPI)NonAf >90 (>60 ml/min/1.73 sqM) Glucose 81 (74-99) mg/dL Calcium 8.7 (8.4-10.2) mg/dL Total Bilirubin 0.2 (0.2-1.3) mg/dL AST 22 (14-36) U/L ALT 21 (4-34) U/L Alkaline Phosphatase 81 (38-126) U/L Total Protein 6.8 (6.3-8.2) g/dL Albumin 4.0 (3.5-5.0) g/dL Disposition <Natasha Ivy - Last Filed: 07/21/23 13:17> Is patient prescribed a controlled substance at d/c from ED?: No Time of Disposition: 17:00 <[place] - Last Filed: 07/29/23 14:50> Clinical Impression: Normal exam Disposition: HOME SELF-CARE Condition: Good Instructions (If sedation given, give patient instructions): Normal Exam (ED) Referrals: Patrick Saab MD [Primary Care Provider] - 1-2 days
[2023-07-21 14:21] VITALS: TEMP 99.1
[2023-07-21 15:58] LABS: Basophils % (A) 0 %; Eosinophils # (A) 0.1 k/uL (0-0.7); Eosinophils % (A) 1 %; HCT 41.4 % (34.0-46.0); HGB 13.5 gm/dL (11.4-16.0); Lymphocytes # (A) 2.1 k/uL (1.0-4.8); Lymphocytes % (A) 31 %; MCH 31.1 pg (25.0-35.0); MCHC 32.6 g/dL (31.0-37.0); MCV 95.5 fL (80.0-100.0); Mean Platelet Volume 7.1; Monocytes # (A) 0.5 k/uL (0-1.0); Monocytes % (A) 6 %; Neutrophils # (A) 4.2 k/uL (1.3-7.7); Neutrophils % (A) 60 %; Platelet Count 417 k/uL (150-450); RBC 4.33 m/uL (3.80-5.40); RDW 11.9 % (11.5-15.5); WBC 6.9 k/uL (3.8-10.6)
[2023-07-21 16:09] LABS: ALT 21 U/L (4-34); AST 22 U/L (14-36); African American GFR (CKD) >90 (>60 ml/min/1.73 sqM); Alkaline Phosphatase 81 U/L (38-126); Anion Gap 8 mmol/L; Blood Urea Nitrogen 11 mg/dL (7-17); Calcium 8.7 mg/dL (8.4-10.2); Carbon Dioxide 23 mmol/L (22-30); Chloride 108 mmol/L (98-107); Glucose 81 mg/dL (74-99); Non-African American GFR(CKD) >90 (>60 ml/min/1.73 sqM); Sodium 139 mmol/L (137-145); Total Bilirubin 0.2 mg/dL (0.2-1.3); Total Protein 6.8 g/dL (6.3-8.2)
[2023-07-21 18:41] VITALS: BP 109/75; PULSE 81; RESP 18
== END 2023-07-21 18:12 | disposition home or self-care (01) ==
LOC: EC 13:01
DX: R00.0 Tachycardia, unspecified (principal); Z88.0 Allergy status to penicillin
CPT/HCPCS: 36415; 80053; 85025; 93005; 99285

== ENCOUNTER 2023-08-28 18:30 | Emergency (ER) | payer MEDICAID, OTHER ==
[2023-08-28 19:39] LABS: Basophils % (A) 0 %; Eosinophils # (A) 0.1 k/uL (0-0.7); Eosinophils % (A) 2 %; HCT 39.6 % (34.0-46.0); HGB 13.6 gm/dL (11.4-16.0); Lymphocytes # (A) 3.1 k/uL (1.0-4.8); Lymphocytes % (A) 38 %; MCH 32.4 pg (25.0-35.0); MCHC 34.3 g/dL (31.0-37.0); MCV 94.4 fL (80.0-100.0); Monocytes # (A) 0.5 k/uL (0-1.0); Monocytes % (A) 6 %; Neutrophils # (A) 4.2 k/uL (1.3-7.7); Neutrophils % (A) 52 %; Platelet Count 354 k/uL (150-450); RDW 12.5 % (11.5-15.5); WBC 8.1 k/uL (3.8-10.6)
--- NOTE | 2023-08-28 20:05 | ED ---
Chest Pain HPI - General Chief Complaint: Chest Pain Stated Complaint: chest tightness Time Seen by Provider: 08/28/23 20:04 Source: patient Mode of arrival: EMS Limitations: no limitations - History of Present Illness Initial Comments: 23-year-old female presenting with chief complaint of chest pain and palpitations. 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 She states that she has had an elevated heart rate for a few weeks because of this. She states that today when she was mowing the grass she had chest pain and had to lay down because she was feeling dizzy. No lower extremity swelling. No oral contraceptive use, recent surgery, recent long travel. No cough, congestion, sore throat, fever, chills. - Related Data Home Medications Medication Instructions Recorded Confirmed ALPRAZolam [Xanax] 0.5 mg PO TID 06/07/22 01/31/23 buPROPion XL [Wellbutrin XL] 300 mg PO DAILY 06/07/22 01/31/23 nadoloL 20 mg PO BID 12/04/22 01/31/23 Sertraline HCl [Zoloft] 50 mg PO DAILY 01/31/23 01/31/23 Previous Rx's Medication Instructions Recorded HYDROcodone/APAP 5-325MG [[place] 1 tab PO Q6HR PRN 3 Days #6 tab 01/31/23 5-325] nadoloL 20 mg PO BID #60 tablet 08/28/23 Allergies Allergy/AdvReac Type Severity Reaction Status Date / Time Penicillins Allergy Rash/Hives Verified 07/21/23 14:04 Review of Systems ROS Statement: Those systems with pertinent positive or pertinent negative responses have been documented in the HPI. ROS Other: All systems not noted in ROS Statement are negative. Past Medical History Past Medical History: No Reported History Additional Past Medical History / Comment(s): tachycardia, pots History of Any Multi-Drug Resistant Organisms: None Reported Past Surgical History: No Surgical Hx Reported Additional Past Surgical History / Comment(s): D&C Past Anesthesia/Blood Transfusion Reactions: No Reported Reaction Past Psychological History: Anxiety, Depression Smoking Status: Never smoker Past Alcohol Use History: Occasional Past Drug Use History: None Reported, Marijuana General Exam - General Exam Comments Initial Comments: Visual Physical Exam Vital signs reviewed General: Well-appearing, nontoxic, no acute distress. Head: Normocephalic, atraumatic Eyes: PERRLA, EOMI ENT: Airway patent Chest: Nonlabored breathing Skin: No visual rash, normal skin tone Neuro: Alert and oriented 3 Musculoskeletal: No gross abnormalities Limitations: no limitations General appearance: alert, in no apparent distress Head exam: Present: atraumatic, normocephalic Eye exam: Present: normal appearance, EOMI Neck exam: Present: normal inspection. Absent: meningismus Respiratory exam: Present: normal lung sounds bilaterally. Absent: respiratory distress, wheezes, rales, rhonchi, stridor Cardiovascular Exam: Present: regular rate, normal rhythm, normal heart sounds. Absent: systolic murmur, diastolic murmur, rubs, gallop, clicks Extremities exam: Absent: pedal edema Neurological exam: Present: alert, oriented X3 Psychiatric exam: Present: normal affect, normal mood Skin exam: Present: normal color Course Vital Signs 08/28/23 08/28/23 08/29/23 18:54 23:00 00:11 Temperature 98.8 F 98.5 F Pulse Rate 98 89 88 Respiratory 16 18 18 Rate Blood Pressure 132/88 100/94 120/81 O2 Sat by Pulse 99 99 100 Oximetry Chest Pain MDM - MDM I performed the quick note portion of this visit, electronically signed Ahsan Telles PA-C Was pt. sent in by a medical professional or institution (ARELY [facility]gen, ANIMAL CARE GIVER, urgent care, hospital, or assisted...) When possible be specific @ -No Did you speak to anyone other than the patient for history (EMS, parent, family, police, friend...)? What history was obtained from this source @ -No Did you review nursing and triage notes (agree or disagree)? Why? @ -I reviewed and agree with nursing and triage notes Were old charts reviewed (outside hosp., previous admission, EMS record, old EKG, old radiological studies, urgent care reports/EKG's, assisted records)? Report findings @ -No old charts were reviewed Differential Diagnosis (chest pain, altered mental status, abdominal pain women, abdominal pain men, vaginal bleeding, weakness, fever, dyspnea, syncope, headache, dizziness, GI bleed, back pain, seizure, CVA, palpatations, mental health, musculoskeletal)? @ -Differential Palpitations Ventricular arrhythmias, atrial arrhythmias, myocardial infarction, anemia, thyrotoxicosis, electrolyte imbalance, hypokalemia, pulmonary embolism, pulmonary disease, drugs, alcohol, anxiety, stress.... This is not meant to be an all-inclusive list. EKG interpreted by me (3pts min.). @ -EKG shows sinus rhythm ventricular rate 92. IL interval 147. QRS 85. QT 341. QTc 390. X-rays interpreted by me (1pt min.). @ -Chest x-ray shows no acute cardiopulmonary process. CT interpreted by me (1pt min.). @ -None done U/S interpreted by me (1pt. min.). @ -None done What testing was considered but not performed or refused? (CT, X-rays, U/S, labs)? Why? @ -None What meds were considered but not given or refused? Why? @ -None Did you discuss the management of the patient with other professionals (professionals i.e. , PA, ANIMAL CARE GIVER, lab, RT, psych nurse, manager social work, infusion rn, teacher, homicide squad commanding officer, outsole caser)? Give summary @ -No Was smoking cessation discussed for >3mins.? @ -No Was critical care preformed (if so, how long)? @ -No Were there social determinants of health that impacted care today? How? (Homelessness, low income, unemployed, alcoholism, drug addiction, transportation, low edu. Level, literacy, decrease access to med. care, snf, rehab)? @ -No Was there de-escalation of care discussed even if they declined (Discuss DNR or withdrawal of care, Hospice)? DNR status @ -No What co-morbidities impacted this encounter? (DM, HTN, Smoking, COPD, CAD, Cancer, CVA, ARF, Chemo, Hep., AIDS, mental health diagnosis, sleep apnea, morbid obesity)? @ -None Was patient admitted / discharged? Hospital course, mention meds given and route, prescriptions, significant lab abnormalities, going to OR and other pertinent info. @ -23-year-old female presenting with chief complaint of chest pain and palpitations. She has history of POTS, she has been without her nadolol for few weeks. Workup was initiated by triage and patient was later placed in a room and evaluated by myself. Negative D-dimer and troponin. Negative hCG. Lab work is grossly unremarkable. Chest x-ray shows no acute process. EKG shows sinus rhythm. Symptoms are likely due to the patient running out of her nadolol. Refill sent to her pharmacy. Follow-up with PCP and cardiology. Discharged home. Follow-up with PCP. Report back to ER with any new or worsening symptoms. Discussed return parameters and answered all questions. Patient conveyed verbal understanding and agreed to the plan. I discussed this case in detail with my attending Dr. Burns Undiagnosed new problem with uncertain prognosis? @ -No Drug Therapy requiring intensive monitoring for toxicity (Heparin, Nitro, Insulin, Cardizem)? @ -No Were any procedures done? @ -No Diagnosis/symptom? @ -Chest pain, tachycardia Acute, or Chronic, or Acute on Chronic? @ -Acute Uncomplicated (without systemic symptoms) or Complicated (systemic symptoms)? @ -Uncomplicated Side effects of treatment? @ -No Exacerbation, Progression, or Severe Exacerbation? @ -No Poses a threat to life or bodily function? How? (Chest pain, USA, NV, pneumonia, PE, COPD, DKA, ARF, appy, cholecystitis, CVA, Diverticulitis, Homicidal, Suicidal, threat to staff... and all critical care pts) @ -Low likelihood Disposition Clinical Impression: Tachycardia, Chest pain Disposition: HOME SELF-CARE Condition: Fair Instructions (If sedation given, give patient instructions): Chest Pain (ED), Tachycardia (ED) Additional Instructions: Follow-up with your PCP and block stacker. Report back to ER with any new or worsening symptoms. Prescriptions: nadoloL 20 mg PO BID #60 tablet Is patient prescribed a controlled substance at d/c from ED?: No Referrals: Patrick Saab MD [Primary Care Provider] - 1-2 days Time of Disposition: 23:44
--- NOTE | 2023-08-28 20:16 | XR ---
EXAMINATION TYPE: XR chest 2V DATE OF EXAM: 08/28/2023 COMPARISON: CTA chest January 23, 2023 HISTORY: Chest pain for 2 days TECHNIQUE: Frontal and lateral views of the chest are obtained. FINDINGS: There is no focal air space opacity, pleural effusion, or pneumothorax seen. The cardiac silhouette size is stable and within normal limits. The osseous structures are intact. IMPRESSION: No acute cardiopulmonary process.
[2023-08-28 22:23] LABS: ALT 29 U/L (4-34); AST 26 U/L (14-36); African American GFR (CKD) >90 (>60 ml/min/1.73 sqM); Albumin 4.3 g/dL (3.5-5.0); Alkaline Phosphatase 84 U/L (38-126); Anion Gap 6 mmol/L; Blood Urea Nitrogen 14 mg/dL (7-17); Calcium 9.6 mg/dL (8.4-10.2); Carbon Dioxide 26 mmol/L (22-30); Chloride 107 mmol/L (98-107); Glucose 82 mg/dL (74-99); Non-African American GFR(CKD) >90 (>60 ml/min/1.73 sqM); Potassium 3.8 mmol/L (3.5-5.1); Sodium 139 mmol/L (137-145); Total Bilirubin 0.5 mg/dL (0.2-1.3); Total Protein 7.3 g/dL (6.3-8.2)
[2023-08-28] MEDS: KETOROLAC 15 MG/ML 1 ML VIAL IVP STA (22:40)
[2023-08-28] MEDS: SODIUM CHLORIDE 0.9% 1,000 ML IV ONE (22:41)
[2023-08-28 23:34] VITALS: RESP 18
[2023-08-29 00:17] VITALS: BP 120/81; PULSE 88; TEMP 98.5
== END 2023-08-29 00:18 | disposition home or self-care (01) ==
LOC: EC 18:30
DX: R07.89 Other chest pain (principal); R00.0 Tachycardia, unspecified; Z88.0 Allergy status to penicillin
CPT/HCPCS: 36415; 93005; 85379; 80053; 83735; 84484; 85025; 81025; 71046; 99285; 96374; 96361 ×2; J1885

== ENCOUNTER 2024-09-28 17:42 | Emergency (ER) | payer MEDICAID, OTHER ==
[2024-09-28 18:14] VITALS: TEMP 98.5
--- NOTE | 2024-09-28 18:16 | ED ---
Abdominal Pain HPI - General Source: patient, RN notes reviewed Mode of arrival: ambulatory Limitations: no limitations <Luis Manuel Logan - Last Filed: 09/28/24 18:16> - General Source: patient, RN notes reviewed, old records reviewed Mode of arrival: ambulatory Limitations: no limitations - History of Present Illness MD Complaint: abdominal pain -: days(s) Location: diffuse Radiation: none Severity: moderate Severity scale (1-10): 4 Consistency: constant Improves With: nothing Worsens With: nothing Associated Symptoms: constipation Treatments Prior to Arrival: other (0) <[place] - Last Filed: 09/28/24 21:49> - General Chief Complaint: Abdominal Pain Stated Complaint: Abd pain Time Seen by Provider: 09/28/24 17:58 - History of Present Illness Initial Comments: Quick note: This is a 24-year-old female presenting for abdominal cramping (07/10). Patient states she has not had any bowel movement in 7 days, stating cramping radiates to her back. Endorses associated anorexia and postprandial nausea. Endorses use of MiraLAX, docusate, magnesium citrate, fiber and increased water intake with minimal relief. (Luis Manuel Logan) This is a 24-year-old female to ER for abdominal pain and cramping decreased bowel movements mainly concerned with nausea without fever no recent travel or sick contacts history of some gallbladder and biliary colic with that nothing to be the case today ([place]) - Related Data Home Medications Medication Instructions Recorded Confirmed ALPRAZolam [Xanax] 0.5 mg PO TID 06/07/22 01/31/23 buPROPion XL [Wellbutrin XL] 300 mg PO DAILY 06/07/22 01/31/23 nadoloL 20 mg PO BID 12/04/22 01/31/23 Sertraline HCl [Zoloft] 50 mg PO DAILY 01/31/23 01/31/23 Previous Rx's Medication Instructions Recorded HYDROcodone/APAP 5-325MG [[place] 1 tab PO Q6HR PRN 3 Days #6 tab 01/31/23 5-325] nadoloL 20 mg PO BID #60 tablet 08/28/23 Ketorolac [Toradol] 10 mg PO Q6HR PRN #15 tab 04/22/24 Ondansetron Odt [Zofran Odt] 4 mg PO Q8HR PRN #15 tab 04/22/24 polyethylene glycoL 3350 [Miralax] 17 gm PO DAILY #14 packet 09/28/24 Allergies Allergy/AdvReac Type Severity Reaction Status Date / Time Penicillins Allergy Rash/Hives Verified 04/22/24 19:54 Review of Systems ROS Other: All systems not noted in ROS Statement are negative. <Luis Manuel Logan - Last Filed: 09/28/24 18:16> ROS Other: All systems not noted in ROS Statement are negative. <[place] - Last Filed: 09/28/24 21:49> ROS Statement: Those systems with pertinent positive or pertinent negative responses have been documented in the HPI. Past Medical History Past Medical History: No Reported History Additional Past Medical History / Comment(s): tachycardia, pots History of Any Multi-Drug Resistant Organisms: None Reported Past Surgical History: No Surgical Hx Reported Additional Past Surgical History / Comment(s): D&C Past Anesthesia/Blood Transfusion Reactions: No Reported Reaction Past Psychological History: Anxiety, Depression Smoking Status: Never smoker Past Alcohol Use History: Occasional Past Drug Use History: None Reported, Marijuana <Luis Manuel Logan - Last Filed: 09/28/24 18:16> General Exam Limitations: no limitations <Luis Manuel Logan - Last Filed: 09/28/24 18:16> General appearance: alert, in no apparent distress Head exam: Present: atraumatic, normocephalic, normal inspection Eye exam: Present: normal appearance, PERRL, EOMI. Absent: scleral icterus, conjunctival injection, periorbital swelling ENT exam: Present: normal exam, mucous membranes moist Neck exam: Present: normal inspection. Absent: tenderness, meningismus, lymphadenopathy Respiratory exam: Present: normal lung sounds bilaterally. Absent: respiratory distress, wheezes, rales, rhonchi, stridor Cardiovascular Exam: Present: regular rate, normal rhythm, normal heart sounds. Absent: systolic murmur, diastolic murmur, rubs, gallop, clicks GI/Abdominal exam: Present: soft, normal bowel sounds. Absent: distended, tenderness, guarding, rebound, rigid Extremities exam: Present: normal inspection, full ROM, normal capillary refill. Absent: tenderness, pedal edema, joint swelling, calf tenderness Back exam: Present: normal inspection Neurological exam: Present: alert, oriented X3, CN II-XII intact Psychiatric exam: Present: normal affect, normal mood Skin exam: Present: warm, dry, intact, normal color. Absent: rash <[place] - Last Filed: 09/28/24 21:49> - General Exam Comments Initial Comments: Visual Physical Exam Vital signs reviewed General: Well-appearing, nontoxic, no acute distress. Head: Normocephalic, atraumatic Eyes: PERRLA, EOMI ENT: Airway patent Chest: Nonlabored breathing Skin: No visual rash, normal skin tone Neuro: Alert and oriented 3 Musculoskeletal: No gross abnormalities (Luis Manuel Logan) Course <[place] - Last Filed: 09/28/24 21:49> Vital Signs 09/28/24 09/28/24 18:12 20:43 Temperature 98.5 F Pulse Rate 84 80 Respiratory 16 18 Rate Blood Pressure 110/75 112/77 O2 Sat by Pulse 98 100 Oximetry - Reevaluation(s) Reevaluation #1: 09/28/24 21:49 Medical records reviewed ([place]) Reevaluation #2: 09/28/24 21:49 Patient's pain is improved ([place]) Reevaluation #3: 09/28/24 21:49 Patient informed of results questions answered ([place]) Reevaluation #4: Reason forWas pt. sent in by a medical professional or institution (, PA, HUSKER OPERATOR, urgent care, hospital, or long-term...) When possible be specific @ -no Did you speak to anyone other than the patient for history (EMS, parent, family, police, friend...)? What history was obtained from this source @ -no Did you review nursing and triage notes (agree or disagree)? Why? @ -agree Are old charts reviewed (outside hosp., previous admission, EMS record, old EKG, old radiological studies, urgent care reports/EKG's, long-term records)? Report findings @ -yes Differential Diagnosis (chest pain, altered mental status, abdominal pain women, abdominal pain men, vaginal bleeding, weakness, fever, dyspnea, syncope, headac he, dizziness, GI bleed, back pain, seizure, CVA, palpatations, mental health, musculoskeletal)? @ -prior EKG interpreted by me (3pts min.). @ -yes X-rays interpreted by me (1pt min.). @ -yes negative for acute disease CT interpreted by me (1pt min.). @ -no U/S interpreted by me (1pt. min.). @ -no What testing was considered but not performed or refused? (CT, X-rays, U/S, labs)? Why? @ -none What meds were considered but not given or refused? Why? @ -none Did you discuss the management of the patient with other professionals (professionals i.e. DrLalo, PA, HUSKER OPERATOR, lab, RT, psych nurse, social work manager, cat dog or other pet groomer, teacher, sba business development officer, caser in)? Give summary @ -no Was smoking cessation discussed for >3mins.? @ -no Was critical care preformed (if so, how long)? @ -no Were there social determinants of health that impacted care today? How? (Homelessness, low income, unemployed, alcoholism, drug addiction, transportation, low edu. Level, literacy, decrease access to med. care, alf, rehab)? @ -none Was there de-escalation of care discussed even if they declined (Discuss DNR or withdrawal of care, Hospice)? DNR status @ -no What co-morbidities impacted this encounter? (DM, HTN, Smoking, COPD, CAD, Cancer, CVA, ARF, Chemo, Hep., AIDS, mental health diagnosis, sleep apnea, morbid obesity)? @ -none Was patient admitted / discharged? Hospital course, mention meds given and rout e, prescriptions, significant lab abnormalities, going to OR and other pertinent info. @ - Undiagnosed new problem with uncertain prognosis? @ -no Drug Therapy requiring intensive monitoring for toxicity (Heparin, Nitro, Insulin, Cardizem)? @ -no Were any procedures done? @ -no Diagnosis/symptom? @ - Acute, or Chronic, or Acute on Chronic? @ -Acute Uncomplicated (without systemic symptoms) or Complicated (systemic symptoms)? @ -Complicated Side effects of treatment? @ -no Exacerbation, Progression, or Severe Exacerbation? @ -exacerbation Poses a threat to life or bodily function? How? (Chest pain, [place], [place], pneumonia, PE, COPD, DKA, ARF, appy, cholecystitis, CVA, Diverticulitis, Homicidal, Suicidal, threat to staff... and all critical care pts) @ -yes ([place]) Reevaluation #5: Differential Abdominal Pain Women: Appendicitis, Cholecystitis, diverticulosis, ischemic bowel, pancreatitis, hepatitis, UTI, gastroenteritis, AAA, incarcerated hernia, bowel obstruction, constipation, inflammatory bowel, hepatitis, peptic ulcer disease, splenic infarction, perforated viscus, vulvitis, ovarian torsion, PID, kidney stone, placenta abruption, this is not meant to be an all-inclusive list ([place]) Medical Decision Making <Luis Manuel Logan - Last Filed: 09/28/24 18:16> - Radiology Data Radiology results: report reviewed (X-ray KUB for constipation), image reviewed <[place] - Last Filed: 09/28/24 21:49> - Medical Decision Making I completed the quick note portion of this chart signed SUJIT Nichols (Luis Manuel Logan) 24 female to ER with abdominal pain and constipation. Pain improved here in the ER no significant abdominal tenderness patient can be discharged home ([place]) - Lab Data Lab Results 09/28/24 09/28/24 Range/Units 18:15 18:15 Urine Color Colorless Urine Appearance Clear (Clear) Urine pH 6.0 (5.0-8.0) Ur Specific [place] 1.008 (1.001-1.035) Urine Protein Negative (Negative) Urine Glucose (UA) Negative (Negative) Urine Ketones Negative (Negative) Urine Blood Negative (Negative) Urine Nitrite Negative (Negative) Urine Bilirubin Negative (Negative) Urine Urobilinogen <2.0 (<2.0) mg/dL Ur Leukocyte Esterase Negative (Negative) Urine HCG, Qual Not Detected (Not Detectd) Disposition <Luis Manuel Logan - Last Filed: 09/28/24 18:16> Is patient prescribed a controlled substance at d/c from ED?: No Time of Disposition: 20:30 <[place] - Last Filed: 09/28/24 21:49> Clinical Impression: Intractable abdominal pain, Nausea and vomiting, Constipation Disposition: HOME SELF-CARE Condition: Good Instructions (If sedation given, give patient instructions): Constipation (ED) Prescriptions: polyethylene glycoL 3350 [Miralax] 17 gm PO DAILY #14 packet Referrals: Patrick Saab MD [Primary Care Provider] - 1-2 days
[2024-09-28 18:37] LABS: Bilirubin,Urine Negative (Negative); Blood,Urine Negative (Negative); Color,Urine Colorless; Glucose,Urine (UA) Negative (Negative); Ketones,Urine Negative (Negative); Leukocyte Esterase,Urine Negative (Negative); Nitrite,Urine Negative (Negative); PH, Urine 6.0 (5.0-8.0); Protein,Urine Negative (Negative); Specific Gravity,Urine 1.008 (1.001-1.035); Urobilinogen,Urine <2.0 mg/dL (<2.0)
--- NOTE | 2024-09-28 19:37 | XR ---
EXAMINATION TYPE: XR KUB DATE OF EXAM: 09/28/2024 7:22 PM COMPARISON: Prior radiograph 01/30/2023. CLINICAL INDICATION: Female, 24 years old with history of Constipation x 7 days; PHH, pain TECHNIQUE: One radiographic view of the abdomen was obtained. FINDINGS: The bowel gas pattern is nonspecific without dilated loops of small or large bowel. . Fecal material and gas are demonstrated throughout the colon and rectum. There is no evidence for organomegaly or pneumoperitoneum. The osseous structures are intact. No ab normal calcifications are present. IMPRESSION: Nonspecific bowel gas pattern without radiographic evidence for acute process. Moderate colonic stool burden suggesting constipation. [facility], , 09/28/2024 7:35 PM
[2024-09-28 20:49] VITALS: BP 112/77; PULSE 80; RESP 18
[2024-09-28] MEDS: ONDANSETRON 4 MG ODT STARTER PACK TAB BTL PO STA (20:49)
[2024-09-28] MEDS: ONDANSETRON ODT 4 MG TAB PO STA (20:49)
[2024-09-28] MEDS: SENNOSIDES-DOCUSATE SODIUM 1 EACH TAB PO STA (20:49)
== END 2024-09-28 20:51 | disposition home or self-care (01) ==
LOC: EC 17:42
DX: K59.00 Constipation, unspecified (principal); Z88.0 Allergy status to penicillin
CPT/HCPCS: 81003; 81025; 74018; 99284; S0119